=== PATIENT | female | born 1970 | race Caucasian/White ===

== ENCOUNTER 2017-08-21 10:32 | Emergency (ER) | payer OTHER ==
--- NOTE | 2017-08-21 12:28 | RAD ---
HISTORY: Calf pain COMPARISONS: None relevant TECHNIQUE: Multiple transverse and longitudinal ultrasound images were obtained of the right lower extremity from the level of the common femoral vein inferiorly through to the infrapopliteal veins using grayscale, color Doppler, and spectral Doppler imaging with and without compression and with augmentation. Comparison images were obtained of the contralateral common femoral vein. FINDINGS: VEINS: There is occlusive thrombus noted within one posterior tibial vein with nonocclusive thrombus noted in a peroneal vein. There is no extension into the popliteal or suprapopliteal venous system. The remainder of the venous system of the right lower extremity is compressible throughout its course, with normal flow on color Doppler imaging and normal response to augmentation on spectral Doppler imaging. SOFT TISSUES: Unremarkable. OTHER FINDINGS: None. IMPRESSION: CALF VEIN THROMBUS OF THE POPLITEAL OR SUPRAPOPLITEAL EXTENSION
[2017-08-21 12:35] VITALS: BP 107/78
--- NOTE | 2017-08-21 15:05 | UC ---
Keith Frias Angela, scribed for Fransisca Alvarado DO on 08/21/17 at 1221 . Lower Extremity/Ankle HPI - HPI Summary HPI Summary: This pt is a 47 y/o female presenting to [facility] c/o right calf pain x3 days. Pt reports a history of 2 DVTs (last one was 3 years ago). Pt notes that today's pain is similar to past DVTs. She states she feels unusually tired. Pt denies chest pain, SOB, palpitations, headache, rashes. She denies any recent bedrest, truama, long travel, hrt. Pt is a former smoker. - History of Current Complaint Chief Complaint: UCLowerExtremity Stated Complaint: PAIN AND BURNING IN CALF OF LEG Time Seen by Provider: 08/21/17 11:43 Hx Obtained From: Patient Hx Last Menstrual Period: hyster Onset/Duration: Lasting Days, Still Present Severity Currently: Severe Pain Intensity: 8 Pain Scale Used: 0-10 Numeric Able to Bear Weight: Yes - Allergies/Home Medications Allergies/Adverse Reactions: Allergies Allergy/AdvReac Type Severity Reaction Status Date / Time Penicillins Allergy Severe Rash Verified 08/21/17 10:44 Sulfa Antibiotics Allergy Intermediate Hives Verified 08/21/17 10:44 Sulfa Drugs Allergy Hives Verified 08/21/17 10:44 PMH/Surg Hx/FS Hx/Imm Hx - Additional Past Medical History Additional PMH: PMHx: DVT Endocrine History: Hypothyroidism Other Endocrine History: DENIES: diabetes Cardiovascular History: Deep Vein Thrombosis Respiratory History: Asthma - Surgical History Surgical History: Yes Surgery Procedure, Year, and Place: varicose vein [id number]. breast reduction x 25 yrs AGO. HYSTERECTOMY 03/2014-[place] - Family History Known Family History: Positive: Unknown - pt is adopted - Social History Alcohol Use: None Alcohol Amount: 6 DRINKS PER WEEK- PATIENT STATES IS IN THE PROCESS OF QUITTING Substance Use Type: None Smoking Status (MU): Former Smoker Amount Used/How Often: OFF AND ON SOCIALLY 20 YEARS When Did the Patient Quit Smoking/Using Tobacco: 10 YEARS AGO - Immunization History Most Recent Influenza Vaccination: 2013 Most Recent Tetanus Shot: Unsure Most Recent Pneumonia Vaccination: Never Review of Systems Constitutional: Fatigue Skin: Negative Eyes: Negative ENT: Negative Respiratory: Negative Cardiovascular: Negative Gastrointestinal: Negative Genitourinary: Negative Motor: Negative Musculoskeletal: Other: - right calf pain Neurological: Negative Psychological: Negative All Other Systems Reviewed And Are Negative: Yes Physical Exam Triage Information Reviewed: Yes Appearance: Well-Appearing, No Pain Distress, Well-Nourished Vital Signs: Initial Vital Signs Temp 98 F 08/21/17 10:45 Pulse 78 08/21/17 10:45 Resp 18 08/21/17 10:45 BP 103/65 08/21/17 10:45 Pulse Ox 100 08/21/17 10:45 Vital Signs Reviewed: Yes Eyes: Positive: Conjunctiva Clear. Negative: Discharge ENT: Positive: Hearing grossly normal, Other: - normal voice. Negative: Muffled /hoarse voice Neck exam: Normal Neck: Positive: Supple Respiratory: Positive: Lungs clear, Normal breath sounds, No respiratory distress, No accessory muscle use Cardiovascular: Positive: RRR, No Murmur Musculoskeletal: Positive: Edema @ - right calf, Other: - rt calf tenderness Neurological: Positive: Alert, Muscle Tone Normal Psychological Exam: Normal Psychological: Positive: Age Appropriate Behavior Skin Exam: Normal Skin: Positive: Other - warm, dry, normal color. Diagnostics - Laboratory Diagnostic Studies Completed/Ordered: Venous Doppler Study (RIGHT), as read by the radiologist. IMPRESSION: calf vein thrombus of the popliteal or suprapopliteal extension. ED physician has reviewed this radiology report and agrees. Lower Extremity Course/Dx - Course Course Of Treatment: Medications reviewed this visit. Venous dopple study shows right calf vein thrombus of the popliteal or suprapopliteal extension. Pt will be transferred to [facility] via ambulance. - Differential Dx/Diagnosis Provider Diagnoses: dvt Discharge - Discharge Plan Condition: Stable Disposition: [facility] Referrals: Addie Guardado MD [Primary Care Provider] - The documentation as recorded by the Keith felipe Angela accurately reflects the service I personally performed and the decisions made by , Fransisca Alvarado DO.
== END 2017-08-21 13:05 | disposition short-term general hospital (02) ==
LOC: UCEAST 10:32
DX: I82.409 Acute embolism and thrombosis of unspecified deep veins of unspecified lower extremity (principal); Z88.0 Allergy status to penicillin; Z88.2 Allergy status to sulfonamides; Z87.891 Personal history of nicotine dependence
CPT/HCPCS: 99213; G0463

== ENCOUNTER 2017-08-21 13:33 | Emergency (ER) | payer OTHER ==
[2017-08-21 13:56] VITALS: BP 103/70
--- NOTE | 2017-08-21 16:45 | ED ---
Lower Extremity - HPI Summary HPI Summary: 47 y/o female presenting to ED from [facility] c/o right calf pain x2-3 days. Pt reports a history of 2 DVTs (last one was 3 years ago). Pt notes that today's pain is similar to past DVTs. She states she feels unusually tired. Pt denies chest pain, SOB, palpitations, headache, rashes. She denies any recent bedrest, long travel, hrt or trauma. Pt is a former smoker. Had an ultrasound completed at [facility] stating she has a DVT of right popliteal vein and is here for starting treatment. - History of Current Complaint Chief Complaint: EDGeneral Stated Complaint: POSSIBLE DVT Time Seen by Provider: 08/21/17 14:14 Hx Obtained From: Patient Hx Last Menstrual Period: hyster Mechanism Of Injury: Other - none Onset/Duration: Days Severity Initially: Mild Severity Currently: Moderate Pain Intensity: 8 Pain Scale Used: 0-10 Numeric Timing: Constant Location: Is Discrete @ - right posterior calf Character Of Pain: Sharp, Aching Associated Signs And Symptoms: Positive: Swelling, Other - warm to touch Aggravating Factor(s): Standing, Ambulation Alleviating Factor(s): Rest Able to Bear Weight: Yes - Allergies/Home Medications Allergies/Adverse Reactions: Allergies Allergy/AdvReac Type Severity Reaction Status Date / Time Penicillins Allergy Severe Rash Verified 08/21/17 10:44 Sulfa Antibiotics Allergy Intermediate Hives Verified 08/21/17 10:44 Sulfa Drugs Allergy Hives Verified 08/21/17 10:44 PMH/Surg Hx/FS Hx/Imm Hx Endocrine/Hematology History: Reports: Hx Thyroid Disease - HYPOTHYROID Denies: Hx Diabetes Cardiovascular History: Reports: Hx Peripheral Vascular Disease - HAD VARICOSE VEIN SURGERY DONE BOTH LEGS, Other Cardiovascular Problems/Disorders - DVT LEFT LEG X 2 - LAST 10/2013 Denies: Hx Hypertension Respiratory History: Reports: Hx Asthma - PRN INHALER- HAS NOT NEEDED TO IN A LONG TIME Denies: Hx Chronic Obstructive Pulmonary Disease (COPD) GI History: Reports: Other GI Disorders - pt has had diarrhea for year pcp aware Denies: Hx Crohn's Disease, Hx Diverticulosis, Hx Gall Bladder Disease, Hx Gastroesophageal Reflux Disease, Hx Gastrointestinal Bleed, Hx Hiatal Hernia, Hx Irritable Bowel, Hx Jaundice, Hx Obstructive Bowel, Hx Ileostomy, Hx Pyloric Stenosis, Hx Ulcer History: Denies: Hx Dialysis, Hx Kidney Infection, Hx Kidney Stones, Hx Renal Disease , Other Problems/Disorders Sensory History: Reports: Hx Contacts or Glasses - GLASSES Denies: Hx Hearing Aid Opthamlomology History: Reports: Hx Contacts or Glasses - GLASSES Neurological History: Reports: Other Neuro Impairments/Disorders - tardive dyskineshia Psychiatric History: Reports: Hx Anxiety - ON MEDICATION FOR, Hx Depression - ON MEDICATION FOR, Hx Bipolar Disorder - PT Denies: Hx of Violent Episodes Against Others - Surgical History Surgery Procedure, Year, and Place: varicose vein [id number]. breast reduction x 25 yrs AGO. HYSTERECTOMY 03/2014-[place] Hx Anesthesia Reactions: No - Immunization History Immunizations Up to Date: Yes Infectious Disease History: No Infectious Disease History: Denies: Hx Clostridium Difficile, Hx Hepatitis, Hx Human Immunodeficiency Virus (HIV), Hx of Known/Suspected MRSA, Hx Shingles, Hx Tuberculosis, Hx Known/ Suspected VRE, Hx Known/Suspected VRSA, History Other Infectious Disease, Traveled Outside the [place] in Last 30 Days - Family History Known Family History: Positive: Hypertension - Social History Alcohol Use: None Alcohol Amount: 6 DRINKS PER WEEK- PATIENT STATES IS IN THE PROCESS OF QUITTING Substance Use Type: Reports: None Smoking Status (MU): Former Smoker Amount Used/How Often: OFF AND ON SOCIALLY 20 YEARS Review of Systems Constitutional: Negative Cardiovascular: Negative Respiratory: Negative Positive: Arthralgia, Myalgia - right posterior calf Skin: Negative Positive: Paresthesia - right foot All Other Systems Reviewed And Are Negative: Yes Physical Exam Triage Information Reviewed: Yes Vital Signs On Initial Exam: Initial Vitals Temp Pulse Resp BP Pulse Ox 97.7 F 74 14 103/70 97 08/21/17 13:52 08/21/17 13:52 08/21/17 13:52 08/21/17 13:52 08/21/17 13:52 Vital Signs Reviewed: Yes Appearance: Positive: Well-Appearing, No Pain Distress, Well-Nourished Skin: Positive: Warm, Skin Color Reflects Adequate Perfusion, Dry. Negative: Cold, Cyanosis @, Pale, Erythema @ Head/Face: Positive: Normal Head/Face Inspection Eyes: Positive: EOMI, KURT, Conjunctiva Clear ENT: Positive: Hearing grossly normal Neck: Positive: Supple, Nontender Respiratory/Lung Sounds: Positive: Clear to Auscultation, Breath Sounds Present. Negative: Decreased Breath Sounds, Rales, Rhonchi, Wheezes Cardiovascular: Positive: Normal, RRR, Pulses are Symmetrical in both Upper and Lower Extremities - 2+ pedal b/l. Negative: Murmur, Rub, Tachycardia, Leg Edema Left, Leg Edema Right Abdomen Description: Positive: Nontender, Soft Bowel Sounds: Positive: Present Musculoskeletal: Positive: Normal, Pain @ - on palpation of mid posterior calf, Shameka Sign Right. Negative: Strength/ROM Intact, Limited @, Interruption @, Edema Left, Edema Right Neurological: Positive: Normal, Sensory/Motor Intact, Alert, Oriented to Person Place, Time, NV Bundle Intact Distally, Normal Gait - Manuel Coma Scale Coma Scale Total: 15 Diagnostics - Vital Signs Vital Signs Temp Pulse Resp BP Pulse Ox 08/21/17 13:52 97.7 F 74 14 103/70 97 - Laboratory Result Diagrams: 08/21/17 16:57 08/21/17 16:57 Lab Statement: Any lab studies that have been ordered have been reviewed, and results considered in the medical decision making process. - Ultrasound No standard instances Ultrasound Interpretation: Positive (See Comments) - CALF VEIN THROMBUS OF THE POPLITEAL OR SUPRAPOPLITEAL EXTENSION Ultrasound Interpretation Completed By: Radiologist Lower Extremity Course/Dx - Course Course Of Treatment: US already obtained at and report is attached. started on treatment while in ED. Spoke with Barbra at 4:45pm about patient and treatment options for DVT with history. educated on options of treatment and decided on xarelto. Properly instructed on how to take the medication. Patient understands and agrees. Labs obtained and were unremarkable. No concern for PE at this time as she has no symptoms and no history. Aware of worsening signs and symptoms to watch out for. Close follow up. Educated on xarelto and the risk of bleeding/side effecs/contraindications. - Diagnoses Differential Diagnosis/HQI/PQRI: Positive: DVT, Phlebitis, Strain Provider Diagnoses: Right leg DVT - Physician Notifications Discussed Care Of Patient With: Dr Belle Time Discussed With Above Provider: 16:45 Instructed by Provider To: Other - treat and follow up, stable condition send home Discharge - Discharge Plan Condition: Stable Disposition: HOME Prescriptions: Rivaroxaban [Xarelto Starter Pack 15 & 20 mg] 1 tab PO SEE INSTRUCTIONS #51 tab Patient Education Materials: Deep Venous Thrombosis (ED), Rivaroxaban (By mouth ) Referrals: Addie Guardado MD [Primary Care Provider] - [facility] [Outside] Additional Instructions: Take anticoagulant by mouth as directed, with next dose being tonight before bedtime. 15mg twice a day for 21 days and then 20mg once a day there after. Refrain from use of blood thinners such as ibuprofen(motrin) aleve(naproxen) and aspirin. Be sure you let medical clerical assistant know you are on anticoagulants. Make an appointment for follow up with PCP to have re-checked and additional medication. You are at higher risk of bleeding while taking this medication. Any new or worsening symptoms such as SOB, chest pain please seek medical attention immediately.
[2017-08-21 17:08] LABS: Hematocrit 41 % (35-47); Hemoglobin 13.7 g/dl (12.0-16.0); Mean Corpuscular HGB Conc 33 g/dl (31-36); Mean Corpuscular Hemoglobin 29 pg (27-31); Mean Corpuscular Volume 87 fL (80-97); Mean Platelet Volume 8 um3 (7.4-10.4); Red Blood Count 4.75 10^6/ul (4.0-5.4); Red Cell Distribution Width 13 % (10.5-15); White Blood Count 5.8 10^3/ul (3.5-10.8)
[2017-08-21 17:22] LABS: Albumin 4.4 g/dL (3.2-5.2); BUN/Creatinine Ratio 10.9 (8-20); Calcium 9.9 mg/dL (8.6-10.3); EGFR African American 127.4 (>60); Globulin 3.1 g/dL (2-4); Potassium 4.1 mmol/L (3.5-5.0); Total Bilirubin 0.5 mg/dL (0.2-1.0); Total Protein 7.5 g/dL (6.4-8.9)
[2017-08-21] MEDS ORDERED: Rivaroxaban TAB(*) 15 MG PO ONE (17:40)
== END 2017-08-21 17:53 | disposition home or self-care (01) ==
LOC: ED 13:33
DX: I82.401 Acute embolism and thrombosis of unspecified deep veins of right lower extremity (principal)
CPT/HCPCS: 36415; 80053; 85025; 99282

== ENCOUNTER 2017-12-26 02:59 | Emergency (ER) | payer OTHER ==
[2017-12-26] MEDS ORDERED: NS 0.9% 1000 ML* 1,000 ML IV ONE (04:12)
[2017-12-26] MEDS ORDERED: LORazepam INJ* 2 MG/ML 1 ML VIAL IV PUSH ONE (04:12)
[2017-12-26] MEDS ORDERED: Ondansetron INJ* 2 MG/ML VIAL IV ONE (04:13)
[2017-12-26] MEDS ORDERED: Pantoprazole IV* 40 MG IV ONE (04:13)
[2017-12-26 04:45] LABS: ABS Basophils 0 10^3/ul (0-0.2); ABS Eosinophils 0 10^3/ul (0-0.6); ABS Lymphocytes 1.2 10^3/ul (1.0-4.8); ABS Monocytes 0.3 10^3/ul (0-0.8); ABS Neutrophils 7.4 10^3/ul (1.5-7.7); ABS Nucleated RBC 0 10^3/ul; Eosinophil % 0 % (0-6); Hematocrit 37 % (35-47); Hemoglobin 12.1 g/dl (12.0-16.0); Lymphocyte % 13.5 % (25-47); Mean Corpuscular HGB Conc 33 g/dl (31-36); Mean Corpuscular Hemoglobin 28 pg (27-31); Mean Corpuscular Volume 84 fL (80-97); Mean Platelet Volume 8 um3 (7.4-10.4); Nucleated Red Blood Cells % 0; Platelet Count 277 10^3/ul (150-450); Red Blood Count 4.39 10^6/ul (4.0-5.4); Red Cell Distribution Width 13 % (10.5-15)
[2017-12-26 04:46] LABS: Urine Appearance Clear; Urine Blood Negative (Negative); Urine Color Straw; Urine Ketones Negative (Negative); Urine Protein Negative (Negative); Urine Specific Gravity 1.003 (1.010-1.030); Urine Urobilinogen Negative (Negative)
[2017-12-26 04:55] LABS: EGFR Non-African American 95.6 (>60)
--- NOTE | 2017-12-26 05:49 | ED ---
Arsalan Frias Rebecca, scribed for Veronica Carrero MD on 12/26/17 at 0325 . Substance Abuse/Use - HPI Summary HPI Summary: Pt is a 47 y/o F who presents to ED s/p accidental Seroquel OD. Pt reports that at 2100 she took 200 mg Seroquel which is her normal dose, then at 2300 she took another 2 pills (400 mg), with 600 mg total. Pt reports that she believes she got confused about the medication and took the Seroquel instead of another medication. Currently, pt c/o "the shakes," dizziness, dry mouth and nausea. Sx aggravated and alleviated by nothing. Does not take any Seroquel in the morning. - History Of Current Complaint Chief Complaint: EDOverdose Stated Complaint: OVERDOSE Time Seen by Provider: 12/26/17 03:01 Hx Obtained From: Patient Hx Last Menstrual Period: hyster Ingestion History: Type/Name Of Drug - Seroquel, Amount Ingested - 600 mg Overdose Characteristics: Oral Aggravating Factor(s): Nothing Alleviating Factor(s): Nothing Associated Signs And Symptoms: Nausea, Other: - Dizziness - Allergies/Home Medications Allergies/Adverse Reactions: Allergies Allergy/AdvReac Type Severity Reaction Status Date / Time MS Penicillins [Penicillins] Allergy Severe Rash Verified 08/21/17 10:44 MS Sulfa Antibiotics Allergy Intermediate Hives Verified 08/21/17 10:44 [Sulfa Antibiotics] MS Sulfa Drugs [Sulfa Drugs] Allergy Hives Verified 08/21/17 10:44 PMH/Surg Hx/FS Hx/Imm Hx Endocrine/Hematology History: Reports: Hx Thyroid Disease - HYPOTHYROID Denies: Hx Diabetes Cardiovascular History: Reports: Hx Peripheral Vascular Disease - HAD VARICOSE VEIN SURGERY DONE BOTH LEGS, Other Cardiovascular Problems/Disorders - DVT LEFT LEG X 2 - LAST 10/2013 Denies: Hx Hypertension Respiratory History: Reports: Hx Asthma - PRN INHALER- HAS NOT NEEDED TO IN A LONG TIME Denies: Hx Chronic Obstructive Pulmonary Disease (COPD) GI History: Reports: Other GI Disorders - pt has had diarrhea for year pcp aware Denies: Hx Crohn's Disease, Hx Diverticulosis, Hx Gall Bladder Disease, Hx Gastroesophageal Reflux Disease, Hx Gastrointestinal Bleed, Hx Hiatal Hernia, Hx Irritable Bowel, Hx Jaundice, Hx Obstructive Bowel, Hx Ileostomy, Hx Pyloric Stenosis, Hx Ulcer History: Denies: Hx Dialysis, Hx Kidney Infection, Hx Kidney Stones, Hx Renal Disease , Other Problems/Disorders Sensory History: Reports: Hx Contacts or Glasses - GLASSES Denies: Hx Hearing Aid Opthamlomology History: Reports: Hx Contacts or Glasses - GLASSES Neurological History: Reports: Other Neuro Impairments/Disorders - tardive dyskineshia Psychiatric History: Reports: Hx Anxiety - ON MEDICATION FOR, Hx Depression - ON MEDICATION FOR, Hx Bipolar Disorder - PT Denies: Hx of Violent Episodes Against Others - Surgical History Surgery Procedure, Year, and Place: varicose vein [id number]. breast reduction x 25 yrs AGO. HYSTERECTOMY 03/2014-[facility] [facility] Hx Anesthesia Reactions: No Infectious Disease History: No Infectious Disease History: Denies: Hx Clostridium Difficile, Hx Hepatitis, Hx Human Immunodeficiency Virus (HIV), Hx of Known/Suspected MRSA, Hx Shingles, Hx Tuberculosis, Hx Known/ Suspected VRE, Hx Known/Suspected VRSA, History Other Infectious Disease, Traveled Outside the [place] in Last 30 Days - Family History Known Family History: Positive: Hypertension - Social History Alcohol Use: None Alcohol Amount: 6 DRINKS PER WEEK- PATIENT STATES IS IN THE PROCESS OF QUITTING Substance Use Type: Reports: None Smoking Status (MU): Former Smoker Amount Used/How Often: OFF AND ON SOCIALLY 20 YEARS Review of Systems Positive: Other - "the shakes" Positive: Other - Dry mouth Positive: Nausea Neurological: Other - Dizziness All Other Systems Reviewed And Are Negative: Yes Physical Exam - Summary Physical Exam Summary: VITAL SIGNS: Reviewed. GENERAL: ~Patient is a well-developed and nourished female who is lying comfortable in the stretcher. Patient is not in any acute respiratory distress. HEAD AND FACE: No signs of trauma. No ecchymosis, hematomas or skull depressions. No sinus tenderness. EYES: PERRLA, EOMI x 2, No injected conjunctiva, no nystagmus. EARS: Hearing grossly intact. Ear canals and tympanic membranes are within normal limits. MOUTH: Oropharynx within normal limits. NECK: Supple, trachea is midline, no adenopathy, no JVD, no carotid bruit, no c- spine tenderness, neck with full ROM. CHEST: Symmetric, no tenderness at palpation LUNGS: Clear to auscultation bilaterally. No wheezing or crackles. CVS: Regular rate and rhythm, S1 and S2 present, no murmurs or gallops appreciated. ABDOMEN: Soft, non-tender. No signs of distention. No rebound no guarding, and no masses palpated. Bowel sounds are normal. EXTREMITIES: FROM in all major joints, no edema, no cyanosis or clubbing. NEURO: Alert and oriented x 3. No acute neurological deficits. Speech is normal and follows commands. SKIN: Dry and warm Psych: Anxious Triage Information Reviewed: Yes Vital Signs On Initial Exam: Initial Vitals Temp Pulse Resp BP Pulse Ox 98.4 F 91 16 112/75 100 12/26/17 03:21 12/26/17 03:21 12/26/17 03:21 12/26/17 03:21 12/26/17 03:21 Vital Signs Reviewed: Yes Diagnostics - Vital Signs Vital Signs Temp Pulse Resp BP Pulse Ox 12/26/17 03:21 98.4 F 91 16 112/75 100 - Laboratory Result Diagrams: 12/26/17 04:26 12/26/17 04:26 Lab Statement: Any lab studies that have been ordered have been reviewed, and results considered in the medical decision making process. - EKG 0426 Cardiac Rate: NL - 84 bpm EKG Rhythm: Sinus Rhythm EKG Interpretation: Non-specific T wave changesin the inferior leads Course/Dx - Course Assessment/Plan: Pt is a 47 y/o F who presents to ED s/p accidental Seroquel OD. Pt reports that at 2100 she took 200 mg Seroquel which is her normal dose, then at 2300 she took another 2 pills (400 mg), with 600 mg total. Pt reports that she believes she got confused about the medication and took the Seroquel instead of another medication. Currently, pt c/o "the shakes," dizziness, dry mouth and nausea. Does not take any Seroquel in the morning. UA and bloodwork were done. In the ED course pt received Zofran, Protonix, Ativan and fluids. Pt feels better and she will be D/C to home with Dx of accidental overdose with a followup with her PCP. She understands and agrees. Allergies noted. - Diagnoses Provider Diagnoses: Accidental overdose Discharge - Discharge Plan Condition: Stable Disposition: HOME Patient Education Materials: Adult Overdose (ED) Referrals: Addie Guardado MD [Primary Care Provider] - 3 Days Additional Instructions: RETURN TO EMERGENCY DEPARTMENT FOR ANY RETURNING OR WORSENING SYMPTOMS. The documentation as recorded by the Arsalan felipe Rebecca accurately reflects the service I personally performed and the decisions made by , Veronica Carrero MD.
[2017-12-26 06:22] VITALS: BP 117/68
== END 2017-12-26 06:26 | disposition home or self-care (01) ==
LOC: ED 02:59
DX: T43.591A Poisoning by other antipsychotics and neuroleptics, accidental (unintentional), initial encounter (principal); R42 Dizziness and giddiness; R68.2 Dry mouth, unspecified; R11.0 Nausea; Z87.891 Personal history of nicotine dependence; Z88.0 Allergy status to penicillin; Z88.2 Allergy status to sulfonamides
CPT/HCPCS: 36415; 80053; 81003; 85025; 93005; 96360; 96361; 96374; 96375; 99283; J2060; J2405

== ENCOUNTER 2018-01-05 00:09 | Emergency (ER) | payer OTHER ==
[2018-01-05] MEDS ORDERED: LORazepam INJ* 2 MG/ML 1 ML VIAL IV PUSH ONE (00:44)
[2018-01-05] MEDS ORDERED: NS 0.9% 1000 ML* 1,000 ML IV ONE (00:44)
[2018-01-05] MEDS ORDERED: Meclizine TAB* 12.5 MG PO ONE (00:44)
[2018-01-05 01:30] LABS: ABS Basophils 0 10^3/ul (0-0.2); ABS Eosinophils 0 10^3/ul (0-0.6); ABS Lymphocytes 1.6 10^3/ul (1.0-4.8); ABS Monocytes 0.3 10^3/ul (0-0.8); ABS Neutrophils 7.1 10^3/ul (1.5-7.7); ABS Nucleated RBC 0 10^3/ul; Eosinophil % 0 % (0-6); Hematocrit 38 % (35-47); Hemoglobin 12.8 g/dl (12.0-16.0); Mean Corpuscular HGB Conc 34 g/dl (31-36); Mean Corpuscular Hemoglobin 28 pg (27-31); Mean Corpuscular Volume 83 fL (80-97); Mean Platelet Volume 8 um3 (7.4-10.4); Nucleated Red Blood Cells % 0; Platelet Count 299 10^3/ul (150-450); Red Blood Count 4.57 10^6/ul (4.0-5.4); Red Cell Distribution Width 13 % (10.5-15); White Blood Count 9.1 10^3/ul (3.5-10.8)
[2018-01-05] MEDS ORDERED: Potassium Chlor TAB* 20 MEQ TAB.ER PO ONE (02:04)
[2018-01-05 03:56] VITALS: BP 120/68
--- NOTE | 2018-01-05 07:20 | ED ---
Gabe Frias Nilda, scribed for Veronica Carrero MD on 01/05/18 at 0033 . Dizziness - HPI Summary HPI Summary: This patient is a 47 year old F presenting to [facility] with a chief complaint of constant vertigo since lying down for bed approximately 2 hours ago. The patient rates the pain 0/10 in severity. Symptoms aggravated by movement and alleviated by rest. Patient reports nausea and vomiting, dizziness, blurry vision, and sensation of lump in my throat. PMHx vertigo (2-3 times per month) , Bipolar 2, and anxiety (Tx with Ativan). Pt states she has run out of Ativan. - History Of Current Complaint Chief Complaint: EDDizziness Stated Complaint: ANXIETY, VERTIGO Hx Obtained From: Patient Onset/Duration: Still Present, Suddenly Timing: Constant Character: Dizzy Aggravating Factor(s): Other - movement Alleviating Factor(s): Rest Associated Signs And Symptoms: Positive: Other: - nausea and vomiting, dizziness , blurry vision, and sensation of lump in my throat." - Allergies/Home Medications Allergies/Adverse Reactions: Allergies Allergy/AdvReac Type Severity Reaction Status Date / Time Penicillins Allergy Hives Verified 01/05/18 00:21 Sulfa (Sulfonamide Allergy Hives Verified 01/05/18 00:21 Antibiotics) PMH/Surg Hx/FS Hx/Imm Hx Endocrine/Hematology History: Reports: Hx Thyroid Disease - HYPOTHYROID Denies: Hx Diabetes Cardiovascular History: Reports: Hx Peripheral Vascular Disease - HAD VARICOSE VEIN SURGERY DONE BOTH LEGS, Other Cardiovascular Problems/Disorders - DVT LEFT LEG X 2 - LAST 10/2013 Denies: Hx Hypertension Respiratory History: Reports: Hx Asthma - PRN INHALER- HAS NOT NEEDED TO IN A LONG TIME Denies: Hx Chronic Obstructive Pulmonary Disease (COPD) GI History: Reports: Other GI Disorders - pt has had diarrhea for year pcp aware Denies: Hx Crohn's Disease, Hx Diverticulosis, Hx Gall Bladder Disease, Hx Gastroesophageal Reflux Disease, Hx Gastrointestinal Bleed, Hx Hiatal Hernia, Hx Irritable Bowel, Hx Jaundice, Hx Obstructive Bowel, Hx Ileostomy, Hx Pyloric Stenosis, Hx Ulcer History: Denies: Hx Dialysis, Hx Kidney Infection, Hx Kidney Stones, Hx Renal Disease , Other Problems/Disorders Sensory History: Reports: Hx Contacts or Glasses - GLASSES Denies: Hx Hearing Aid Opthamlomology History: Reports: Hx Contacts or Glasses - GLASSES Neurological History: Reports: Other Neuro Impairments/Disorders - tardive dyskineshia, vertigo Psychiatric History: Reports: Hx Anxiety - ON MEDICATION FOR, Hx Depression - ON MEDICATION FOR, Hx Bipolar Disorder - PT Denies: Hx of Violent Episodes Against Others - Surgical History Surgery Procedure, Year, and Place: varicose vein [id number]. breast reduction x 25 yrs AGO. HYSTERECTOMY 03/2014-[place] Hx Anesthesia Reactions: No - Immunization History Date of Tetanus Vaccine: unk Date of Influenza Vaccine: none Infectious Disease History: No Infectious Disease History: Denies: Hx Clostridium Difficile, Hx Hepatitis, Hx Human Immunodeficiency Virus (HIV), Hx of Known/Suspected MRSA, Hx Shingles, Hx Tuberculosis, Hx Known/ Suspected VRE, Hx Known/Suspected VRSA, History Other Infectious Disease, Traveled Outside the [place] in Last 30 Days - Family History Known Family History: Positive: Hypertension - Social History Alcohol Use: None Alcohol Amount: 6 DRINKS PER WEEK- PATIENT STATES IS IN THE PROCESS OF QUITTING Substance Use Type: Reports: None Smoking Status (MU): Current Some Day Smoker Amount Used/How Often: OFF AND ON SOCIALLY 20 YEARS Review of Systems Positive: Blurred Vision Positive: Other - "lump in my throat" Positive: Vomiting, Nausea Positive: Other - negative pain Neurological: Other - dizziness, vertigo Positive: Anxious All Other Systems Reviewed And Are Negative: Yes Physical Exam - Summary Physical Exam Summary: VITAL SIGNS: Reviewed. GENERAL: Patient is a well-developed and nourished female who is lying comfortable in the stretcher. Patient is not in any acute respiratory distress. HEAD AND FACE: No signs of trauma. No ecchymosis, hematomas or skull depressions. No sinus tenderness. EYES: PERRLA, EOMI x 2, No injected conjunctiva, no nystagmus. EARS: Hearing grossly intact. Ear canals and tympanic membranes are within normal limits. MOUTH: Oropharynx within normal limits. NECK: Supple, trachea is midline, no adenopathy, no JVD, no carotid bruit, no c- spine tenderness, neck with full ROM. CHEST: Symmetric, no tenderness at palpation LUNGS: Clear to auscultation bilaterally. No wheezing or crackles. CVS: Regular rate and rhythm, S1 and S2 present, no murmurs or gallops appreciated. ABDOMEN: Soft, non-tender. No signs of distention. No rebound no guarding, and no masses palpated. Bowel sounds are normal. EXTREMITIES: FROM in all major joints, no edema, no cyanosis or clubbing. NEURO: Alert and oriented x 3. No acute neurological deficits. Speech is normal and follows commands. SKIN: Dry and warm Triage Information Reviewed: Yes Vital Signs On Initial Exam: Initial Vitals Temp Pulse Resp BP Pulse Ox 99.2 F 85 16 117/74 95 01/05/18 00:17 01/05/18 00:17 01/05/18 00:17 01/05/18 00:17 01/05/18 00:17 Vital Signs Reviewed: Yes Diagnostics - Vital Signs Vital Signs Temp Pulse Resp BP Pulse Ox 01/05/18 00:17 99.2 F 85 16 117/74 95 - Laboratory Result Diagrams: 01/05/18 01:05 01/05/18 01:05 Lab Statement: Any lab studies that have been ordered have been reviewed, and results considered in the medical decision making process. Dizzy Course/Dx - Course Assessment/Plan: Pt is 47 y/o with Hx vertigo, bipolar, and anxiety. Pt came here c/o dizziness worse with movement. Exam unremarkable. Pt will be D/C. - Diagnoses Provider Diagnoses: Benign positional vertigo, Anxiety Discharge - Discharge Plan Condition: Stable Disposition: HOME Prescriptions: Meclizine TAB* [Antivert 12.5 TAB*] 25 mg PO TID PRN #30 tab PRN Reason: Dizziness Patient Education Materials: Benign Paroxysmal Positional Vertigo (ED), Anxiety (ED) Referrals: Addie Guardado MD [Primary Care Provider] - 2 Days Additional Instructions: Take medications as directed. Follow up with your primary care physician. RETURN TO THE EMERGENCY DEPARTMENT FOR CHANGING OR WORSENING SYMPTOMS. The documentation as recorded by the Gabe felipe Nilda accurately reflects the service I personally performed and the decisions made by , Veronica Carrero MD.
== END 2018-01-05 03:54 | disposition home or self-care (01) ==
LOC: ED 00:09
DX: R11.2 Nausea with vomiting, unspecified (principal); R42 Dizziness and giddiness; H53.8 Other visual disturbances; H81.10 Benign paroxysmal vertigo, unspecified ear; F41.9 Anxiety disorder, unspecified; Z72.0 Tobacco use
CPT/HCPCS: 36415; 80053; 80178; 85025; 96374; 99283; A9270-GY; J2060

== ENCOUNTER 2018-01-22 21:55 | Emergency (ER) | payer OTHER ==
[2018-01-23 00:32] VITALS: BP 110/72
[2018-01-23] MEDS ORDERED: hydrOXYzine HCL TAB* 25 MG PO ONE (01:16)
--- NOTE | 2018-01-23 01:18 | ED ---
Complex/Multi-Sys Presentation - HPI Summary HPI Summary: 39-year-old female presents ED with complaints of having frequent panic attacks for the past month. States she is on Ativan for this, she just had this increased a few days ago to 1.5 mg daily. Patient states she began having a panic attack took her Ativan and symptoms shortly resolved after however she is still feeling shaky. Also admits to vertigo at times of panic attacks however she is not feeling this currently. Was given meclizine at previous visit at 80 week ago. This helps her with her vertigo. Denies any other symptoms other than feeling shaky. States she is anxious has trouble sleeping. Does have a psychiatrist that she follows up with and is supposed to see tomorrow. Denies any palpitations nausea vomiting headache or other symptoms at this time. Unknown cause of why she has panic attacks other than daily stress. No other significant past medical history. No recent trauma, injury or pain. - History Of Current Complaint Chief Complaint: EDPsychosocial Time Seen by Provider: 01/23/18 00:19 Hx Obtained From: Patient Onset/Duration: Sudden Onset, Lasting Hours, Still Present, Resolved - Mostly Timing: Constant Severity Currently: Mild Severity Initially: Moderate Location: Negative Aggravating Factor(s): None Alleviating Factor(s): Ativan Associated Signs And Symptoms: Positive: Dizziness - Resolved, Palpitations - Resolved, Nausea - Resolved, Other - Shakiness, hyperventilating resolved - Allergies/Home Medications Allergies/Adverse Reactions: Allergies Allergy/AdvReac Type Severity Reaction Status Date / Time Penicillins Allergy Hives Verified 01/05/18 00:21 Sulfa (Sulfonamide Allergy Hives Verified 01/05/18 00:21 Antibiotics) PMH/Surg Hx/FS Hx/Imm Hx Endocrine/Hematology History: Reports: Hx Thyroid Disease - HYPOTHYROID Denies: Hx Diabetes Cardiovascular History: Reports: Hx Peripheral Vascular Disease - HAD VARICOSE VEIN SURGERY DONE BOTH LEGS, Other Cardiovascular Problems/Disorders - DVT LEFT LEG X 2 - LAST 10/2013 Denies: Hx Hypertension Respiratory History: Reports: Hx Asthma - PRN INHALER- HAS NOT NEEDED TO IN A LONG TIME Denies: Hx Chronic Obstructive Pulmonary Disease (COPD) GI History: Reports: Other GI Disorders - pt has had diarrhea for year pcp aware Denies: Hx Crohn's Disease, Hx Diverticulosis, Hx Gall Bladder Disease, Hx Gastroesophageal Reflux Disease, Hx Gastrointestinal Bleed, Hx Hiatal Hernia, Hx Irritable Bowel, Hx Jaundice, Hx Obstructive Bowel, Hx Ileostomy, Hx Pyloric Stenosis, Hx Ulcer History: Denies: Hx Dialysis, Hx Kidney Infection, Hx Kidney Stones, Hx Renal Disease , Other Problems/Disorders Sensory History: Reports: Hx Contacts or Glasses - GLASSES Denies: Hx Hearing Aid Opthamlomology History: Reports: Hx Contacts or Glasses - GLASSES Neurological History: Reports: Other Neuro Impairments/Disorders - tardive dyskineshia, vertigo Psychiatric History: Reports: Hx Anxiety - ON MEDICATION FOR, Hx Depression - ON MEDICATION FOR, Hx Bipolar Disorder - PT Denies: Hx of Violent Episodes Against Others - Surgical History Surgery Procedure, Year, and Place: varicose vein [id number]. breast reduction x 25 yrs AGO. HYSTERECTOMY 03/2014-[place] Hx Anesthesia Reactions: No - Immunization History Date of Tetanus Vaccine: unk Date of Influenza Vaccine: none Immunizations Up to Date: Yes Infectious Disease History: No Infectious Disease History: Denies: Hx Clostridium Difficile, Hx Hepatitis, Hx Human Immunodeficiency Virus (HIV), Hx of Known/Suspected MRSA, Hx Shingles, Hx Tuberculosis, Hx Known/ Suspected VRE, Hx Known/Suspected VRSA, History Other Infectious Disease, Traveled Outside the [place] in Last 30 Days - Family History Known Family History: Positive: Hypertension - Social History Alcohol Use: None Alcohol Amount: 6 DRINKS PER WEEK- PATIENT STATES IS IN THE PROCESS OF QUITTING Substance Use Type: Reports: None Smoking Status (MU): Current Some Day Smoker Amount Used/How Often: OFF AND ON SOCIALLY 20 YEARS Review of Systems Constitutional: Negative Positive: Palpitations - resolved Respiratory: Negative Musculoskeletal: Negative Skin: Negative Neurological: Other - shaky Positive: Anxious All Other Systems Reviewed And Are Negative: Yes Physical Exam Triage Information Reviewed: Yes Vital Signs On Initial Exam: Initial Vitals Temp Pulse Resp BP Pulse Ox 99.3 F 94 18 136/72 96 01/22/18 22:02 01/22/18 22:02 01/22/18 22:02 01/22/18 22:02 01/22/18 22:02 Vital Signs Reviewed: Yes Appearance: Positive: Well-Appearing - Resting comfortably in stretcher eating, watching TV, getting up to go to the bathroom multiple times, No Pain Distress, Well-Nourished Skin: Positive: Warm, Skin Color Reflects Adequate Perfusion, Dry. Negative: Cold, Numb, Cyanosis @, Pale, Erythema @ Head/Face: Positive: Normal Head/Face Inspection Eyes: Positive: Normal, EOMI, KURT, Conjunctiva Clear ENT: Positive: Hearing grossly normal, Pharynx normal, TMs normal, Uvula midline Neck: Positive: Supple, Nontender Respiratory/Lung Sounds: Positive: Clear to Auscultation, Breath Sounds Present. Negative: Rales, Rhonchi, Wheezes Cardiovascular: Positive: Normal, RRR, Pulses are Symmetrical in both Upper and Lower Extremities. Negative: Murmur, Rub Abdomen Description: Positive: Nontender, Soft Bowel Sounds: Positive: Present Musculoskeletal: Positive: Normal, Strength/ROM Intact Neurological: Positive: Normal, Sensory/Motor Intact, Alert, Oriented to Person Place, Time Psychiatric: Positive: Normal, Affect/Mood Appropriate - Greig Coma Scale Best Eye Response: 4 - Spontaneous Best Motor Response: 6 - Obeys Commands Best Verbal Response: 5 - Oriented Coma Scale Total: 15 Diagnostics - Vital Signs Vital Signs Temp Pulse Resp BP Pulse Ox 01/23/18 01:01 98.8 F 79 16 110/72 99 01/23/18 01:00 77 95 01/23/18 00:01 79 110/72 96 01/23/18 00:00 79 97 01/22/18 23:30 80 110/72 96 01/22/18 23:00 81 105/66 97 01/22/18 22:34 84 98 01/22/18 22:30 84 109/73 96 01/22/18 22:20 85 96 01/22/18 22:18 120/76 01/22/18 22:02 99.3 F 94 18 136/72 96 - Laboratory Lab Statement: Any lab studies that have been ordered have been reviewed, and results considered in the medical decision making process. Complex Multi-Symp Course/Dx Course Of Treatment: Normal vital signs and physical exam. Appears that panic attack symptoms resolved. Is still feeling shaky. Given hydroxyzine before discharge. Encouraged to follow up with psychiatrist tomorrow as scheduled. Ativan dose was already increased recently therefore no need to change at this time. Encouraged to give more time to let medication due to its job. Also encouraged to discuss with psychiatrist about changing medications. Also encouraged counseling to develop coping mechanisms. No other concerns for other etiology at this time. Patient asymptomatic. Follow-up with PCP. Aware worsening signs and symptoms to watch out for. - Diagnoses Differential Diagnoses/HQI/PQRI: Other - Anxiety, panic attack, depression, palpitations Provider Diagnoses: Anxiety, Panic attack Discharge - Sign-Out/Discharge Documenting (check all that apply): Discharge - Discharge Plan Condition: Good Disposition: HOME Patient Education Materials: Anxiety (ED), Panic Attack (ED) Referrals: Addie Guardado MD [Primary Care Provider] - Additional Instructions: Continue taking our any prescribed medication for vertigo and anxiety. Recommend counseling to figure out coping mechanisms. Follow-up psychiatrist tomorrow to discuss medications and visit here. Any new or worsening symptoms please seek medical attention. - Billing Disposition and Condition Condition: GOOD Disposition: HOME
== END 2018-01-23 01:30 | disposition home or self-care (01) ==
LOC: ED 21:55
DX: F41.8 Other specified anxiety disorders (principal); R42 Dizziness and giddiness; Z72.0 Tobacco use
CPT/HCPCS: 99282

== ENCOUNTER 2018-05-22 12:51 | Emergency (ER) | payer OTHER ==
--- NOTE | 2018-05-22 13:00 | ED ---
HPI Chest Pain - HPI Summary HPI Summary: 48 y/o female BIBA c/o constnat chest pain described as a pressure for 2 weeks. CP in the mid-sternal area. Pt still has these symptoms now. Associated sx: SOB. Pt on Xarelto. Pt sent by [facility]. PMHx DVT, hysterectomy, hiatal hernia. Smoker. This is scribe Ed Flaca documenting for attending Joshua Hartley MD - History of Current Complaint Time Seen by Provider: 05/22/18 12:56 Hx Obtained From: Patient Hx Last Menstrual Period: hyster Onset/Duration: Started Weeks Ago, Still Present Timing: Constant Chest Pain Location: Discrete at: Character: Pressure/Squeezing Aggravating Factor(s): Nothing Alleviating Factor(s): Nothing Associated Signs and Symptoms: Positive: Shortness of Breath - Additional Pertinent History Primary Care Physician: SHERYL - Allergy/Home Medications Allergies/Adverse Reactions: Allergies Allergy/AdvReac Type Severity Reaction Status Date / Time Penicillins Allergy Hives Verified 05/22/18 13:06 Sulfa (Sulfonamide Allergy Hives Verified 05/22/18 13:06 Antibiotics) Home Medications: Home Medications Calcium Carb,Gluc/Mag Ox,Gluc [Calcium Magnesium Caplet] 1 each PO DAILY [History Confirmed 05/22/18] CloZAPine TAB* 100 mg PO DAILY 05/22/18 [History Confirmed 05/22/18] LORazepam TAB(*) [Ativan 0.5 MG TAB (*)] 0.5 mg PO DAILY 05/22/18 [History Confirmed 05/22/18] [place] Carbonate ER TAB* 300 mg PO DAILY 05/22/18 [History Confirmed 05/22/18] Potassium Gluconate [Potassium] 1 tab PO DAILY 05/22/18 [History Confirmed 05/22] Rivaroxaban TAB(*) [Xarelto 20 mg] 20 mg PO DAILY 05/22/18 [History Confirmed ] Sertraline* [Zoloft*] 100 mg PO DAILY 05/22/18 [History Confirmed 05/22/18] PMH/Surg Hx/FS Hx/Imm Hx Previously Healthy: No Endocrine/Hematology History: Reports: Hx Thyroid Disease - HYPOTHYROID Denies: Hx Diabetes Cardiovascular History: Reports: Hx Peripheral Vascular Disease - HAD VARICOSE VEIN SURGERY DONE BOTH LEGS, Other Cardiovascular Problems/Disorders - DVT LEFT LEG X 2 - LAST 10/2013 Denies: Hx Hypertension Respiratory History: Reports: Hx Asthma - PRN INHALER- HAS NOT NEEDED TO IN A LONG TIME Denies: Hx Chronic Obstructive Pulmonary Disease (COPD) GI History: Reports: Other GI Disorders - pt has had diarrhea for year pcp aware Denies: Hx Crohn's Disease, Hx Diverticulosis, Hx Gall Bladder Disease, Hx Gastroesophageal Reflux Disease, Hx Gastrointestinal Bleed, Hx Hiatal Hernia, Hx Irritable Bowel, Hx Jaundice, Hx Obstructive Bowel, Hx Ileostomy, Hx Pyloric Stenosis, Hx Ulcer History: Denies: Hx Dialysis, Hx Kidney Infection, Hx Kidney Stones, Hx Renal Disease , Other Problems/Disorders Sensory History: Reports: Hx Contacts or Glasses - GLASSES Denies: Hx Hearing Aid Opthamlomology History: Reports: Hx Contacts or Glasses - GLASSES Neurological History: Reports: Other Neuro Impairments/Disorders - tardive dyskineshia, vertigo Psychiatric History: Reports: Hx Anxiety - ON MEDICATION FOR, Hx Depression - ON MEDICATION FOR, Hx Bipolar Disorder - PT Denies: Hx of Violent Episodes Against Others - Surgical History Surgery Procedure, Year, and Place: varicose vein [id number]. breast reduction x 25 yrs AGO. HYSTERECTOMY 03/2014-[facility] Hx Anesthesia Reactions: No - Immunization History Date of Tetanus Vaccine: unk Date of Influenza Vaccine: none Infectious Disease History: Denies: Hx Clostridium Difficile, Hx Hepatitis, Hx Human Immunodeficiency Virus (HIV), Hx of Known/Suspected MRSA, Hx Shingles, Hx Tuberculosis, Hx Known/ Suspected VRE, Hx Known/Suspected VRSA, History Other Infectious Disease - Family History Known Family History: Positive: Hypertension - Social History Alcohol Use: None Alcohol Amount: 6 DRINKS PER WEEK- PATIENT STATES IS IN THE PROCESS OF QUITTING Substance Use Type: Reports: None Hx Tobacco Use: Yes Smoking Status (MU): Current Some Day Smoker Amount Used/How Often: OFF AND ON SOCIALLY 20 YEARS Review of Systems Constitutional: Negative Eyes: Negative ENT: Negative Positive: Chest Pain Positive: Shortness Of Breath Gastrointestinal: Negative Genitourinary: Negative Musculoskeletal: Negative Skin: Negative Neurological: Negative Psychological: Normal All Other Systems Reviewed And Are Negative: Yes Physical Exam - Summary Physical Exam Summary: VITAL SIGNS: Reviewed. GENERAL: Patient is a well-developed and nourished female who is lying comfortable in the stretcher. Patient is not in any acute respiratory distress. HEAD AND FACE: No signs of trauma. No ecchymosis, hematomas or skull depressions. No sinus tenderness. EYES: PERRLA, EOMI x 2, No injected conjunctiva, no nystagmus. EARS: Hearing grossly intact. Ear canals and tympanic membranes are within normal limits. MOUTH: Oropharynx within normal limits. NECK: Supple, trachea is midline, no adenopathy, no JVD, no carotid bruit, no c- spine tenderness, neck with full ROM. CHEST: Symmetric, no tenderness at palpation LUNGS: Clear to auscultation bilaterally. No wheezing or crackles. CVS: Regular rate and rhythm, S1 and S2 present, no murmurs or gallops appreciated. ABDOMEN: Soft, non-tender. No signs of distention. No rebound no guarding, and no masses palpated. Bowel sounds are normal. EXTREMITIES: FROM in all major joints, no edema, no cyanosis or clubbing. NEURO: Alert and oriented x 3. No acute neurological deficits. Speech is normal and follows commands. SKIN: Dry and warm Triage Information Reviewed: Yes Vital Signs Reviewed: Yes Diagnostics - Laboratory Result Diagrams: 05/22/18 13:26 05/22/18 13:26 Lab Statement: Any lab studies that have been ordered have been reviewed, and results considered in the medical decision making process. - EKG 1 EKG Interpretation: 13:05 - SB @ [address] elevations. EKG Comparison: No Significant Change - 12/26/17 Re-Evaluation - Re-Evaluation 1 Re-Evaluation Time: 16:30 Comment: discussed test results and findings, plan to d/c Chest Pain Course/Dx - Course Assessment/Plan: This patient is a 48-year-old female who presents to the emergency department via ambulance after she was transferred from the primary care physicians office with a chief complaint of having chest pain and shortness of breath. The patient reports that she has history of DVT for which the patient is taken Xarelto. Blood test results without any significant abnormality. 2 separate troponins 4 hours apart is 0.00. D-dimer is negative less than 200. Therefore at this point I have no suspicion for an acute coronary syndrome or PE. Chest x-ray impression: No acute pathology. EKG shows no ST elevations. At this point the patient reports that she is feeling better. She does have any chest pain or shortness of breath. I discussed all the findings and test results with the patient and the need to follow up with the primary care physician. She was instructed to return to the emergency department if she develops any other symptoms or the chest pain or shortness of breath returns. She understands and agrees. She might benefit of and a stress test which probably is going to be scheduled by the primary care physician. She is hemodynamically stable alert and oriented 3. - Diagnoses Provider Diagnoses: Chest pain, Dyspnea Discharge - Sign-Out/Discharge Documenting (check all that apply): Patient Departure - Discharge Plan Condition: Stable Disposition: HOME Patient Education Materials: Chest Pain (ED), Dyspnea (ED) Referrals: Addie Guardado MD [Medical Doctor] - 4 Days (PLEASE F/u IN 3-5 DAYS) Additional Instructions: RETURN TO THE ED FOR CHANGING/WORSENING SYMPTOMS - Billing Disposition and Condition Condition: STABLE Disposition: Home
[2018-05-22 13:39] LABS: ABS Basophils 0 10^3/ul (0-0.2); ABS Eosinophils 0 10^3/ul (0-0.6); ABS Lymphocytes 1.3 10^3/ul (1.0-4.8); ABS Monocytes 0.2 10^3/ul (0-0.8); ABS Neutrophils 4.4 10^3/ul (1.5-7.7); ABS Nucleated RBC 0 10^3/ul; Eosinophil % 0 % (0-6); Hematocrit 40 % (35-47); Hemoglobin 13.5 g/dl (12.0-16.0); Lymphocyte % 22.5 % (25-47); Mean Corpuscular HGB Conc 34 g/dl (31-36); Mean Corpuscular Hemoglobin 28 pg (27-31); Mean Corpuscular Volume 81 fL (80-97); Mean Platelet Volume 8.4 um3 (7.4-10.4); Nucleated Red Blood Cells % 0.1; Platelet Count 246 10^3/ul (150-450); Red Blood Count 4.92 10^6/ul (4.00-5.40); Red Cell Distribution Width 14 % (10.5-15)
[2018-05-22 13:51] LABS: INR 0.86 (0.77-1.02)
[2018-05-22 13:54] LABS: EGFR Non-African American 84.7 (>60)
[2018-05-22 16:15] VITALS: BP 105/56
[2018-05-22 16:55] LABS: Urine Appearance Cloudy; Urine Blood Negative (Negative); Urine Color Yellow; Urine Ketones Negative (Negative); Urine Protein Negative (Negative); Urine Specific Gravity 1.005 (1.010-1.030); Urine Urobilinogen Negative (Negative)
== END 2018-05-22 16:41 | disposition home or self-care (01) ==
LOC: ED 12:51
DX: R07.89 Other chest pain (principal); R06.00 Dyspnea, unspecified; R00.1 Bradycardia, unspecified; Z86.718 Personal history of other venous thrombosis and embolism; Z79.01 Long term (current) use of anticoagulants; F41.9 Anxiety disorder, unspecified; F31.9 Bipolar disorder, unspecified; Z88.0 Allergy status to penicillin; Z88.2 Allergy status to sulfonamides; Z82.49 Family history of ischemic heart disease and other diseases of the circulatory system; Z72.0 Tobacco use
CPT/HCPCS: 36415; 80053; 81003; 82550; 82553; 83605; 83735; 83880; 84443; 84484; 84702; 85025; 85379; 85610; 85730; 93005; 99283

== ENCOUNTER 2019-04-12 09:47 | Inpatient (IN) | payer OTHER ==
--- NOTE | 2019-04-12 10:13 | ED ---
Psychiatric Complaint - HPI Summary HPI Summary: Patient is a 48-year-old female who presents to emergency department for a psychiatric evaluation. Patient has a history of bipolar disorder currently follows with therapist and psychiatrist on a regular basis. Patient is currently on clozapine, lithium and Ativan. Patient states she's been having worsening anxiety over the last several days. She's been having intermittent suicidal thoughts but currently denies any radiation. She has been admitted the past for suicidal attempts. Patient states she spoke with her therapist who recommended coming into the ER for evaluation. Symptoms are moderate in severity. Patient otherwise denies past medical history urinary complaints. No current modifying factors. Patient notes she's been taking her medication daily as prescribed. - History Of Current Complaint Chief Complaint: EDPsychosocial Time Seen by Provider: 04/12/19 09:58 Hx Obtained From: Patient Hx Last Menstrual Period: hyster - Allergies/Home Medications Allergies/Adverse Reactions: Allergies Allergy/AdvReac Type Severity Reaction Status Date / Time Penicillins Allergy Hives Verified 04/12/19 09:49 Sulfa (Sulfonamide Allergy Hives Verified 04/12/19 09:49 Antibiotics) PMH/Surg Hx/FS Hx/Imm Hx Previously Healthy: Yes Endocrine/Hematology History: Reports: Hx Thyroid Disease - HYPOTHYROID Denies: Hx Diabetes Cardiovascular History: Reports: Hx Peripheral Vascular Disease - HAD VARICOSE VEIN SURGERY DONE BOTH LEGS, Other Cardiovascular Problems/Disorders - DVT LEFT LEG X 2 - LAST 10/2013 Denies: Hx Hypertension Respiratory History: Reports: Hx Asthma - PRN INHALER- HAS NOT NEEDED TO IN A LONG TIME Denies: Hx Chronic Obstructive Pulmonary Disease (COPD) GI History: Reports: Other GI Disorders - pt has had diarrhea for year pcp aware Denies: Hx Crohn's Disease, Hx Diverticulosis, Hx Gall Bladder Disease, Hx Gastroesophageal Reflux Disease, Hx Gastrointestinal Bleed, Hx Hiatal Hernia, Hx Irritable Bowel, Hx Jaundice, Hx Obstructive Bowel, Hx Ileostomy, Hx Pyloric Stenosis, Hx Ulcer History: Denies: Hx Dialysis, Hx Kidney Infection, Hx Kidney Stones, Hx Renal Disease , Other Problems/Disorders Sensory History: Reports: Hx Contacts or Glasses - GLASSES Denies: Hx Hearing Aid Opthamlomology History: Reports: Hx Contacts or Glasses - GLASSES Neurological History: Reports: Other Neuro Impairments/Disorders - tardive dyskineshia, vertigo Psychiatric History: Reports: Hx Anxiety - ON MEDICATION FOR, Hx Depression - ON MEDICATION FOR, Hx Bipolar Disorder - PT Denies: Hx of Violent Episodes Against Others - Cancer History Hx Chemotherapy: No Hx Radiation Therapy: No - Surgical History Surgery Procedure, Year, and Place: varicose vein [id number]. breast reduction x 25 yrs AGO. HYSTERECTOMY 03/2014-[place] Hx Anesthesia Reactions: No - Immunization History Date of Tetanus Vaccine: unk Date of Influenza Vaccine: none Infectious Disease History: No Infectious Disease History: Denies: Hx Clostridium Difficile, Hx Hepatitis, Hx Human Immunodeficiency Virus (HIV), Hx of Known/Suspected MRSA, Hx Shingles, Hx Tuberculosis, Hx Known/ Suspected VRE, Hx Known/Suspected VRSA, History Other Infectious Disease, Traveled Outside the [place] in Last 30 Days - Family History Known Family History: Positive: Hypertension, Non-Contributory - Social History Occupation: Unemployed Lives: Alone Alcohol Use: Occasionally Alcohol Amount: 6 DRINKS PER WEEK- PATIENT STATES IS IN THE PROCESS OF QUITTING Substance Use Type: Reports: None Hx Tobacco Use: Yes Smoking Status (MU): Former Smoker Amount Used/How Often: OFF AND ON SOCIALLY 20 YEARS Review of Systems Cardiovascular: Negative Respiratory: Negative Gastrointestinal: Negative Neurological: Negative Positive: Anxious All Other Systems Reviewed And Are Negative: Yes Physical Exam Triage Information Reviewed: Yes Vital Signs On Initial Exam: Initial Vitals Temp Pulse Resp BP Pulse Ox 98.4 F 90 18 107/72 97 04/12/19 09:50 04/12/19 09:50 04/12/19 09:50 04/12/19 09:50 04/12/19 09:50 Vital Signs Reviewed: Yes Appearance: Positive: Well-Nourished - Pt. sitting up in bed in NAD. Tearful at times. Cooperative. Skin: Positive: Warm, Dry, Other - tattoo across upper chest. Head/Face: Positive: Normal Head/Face Inspection Eyes: Positive: Normal, EOMI, KURT Neck: Positive: Supple Neurological: Positive: Normal, Alert, Oriented to Person Place, Time, CN Intact II-III Psychiatric: Positive: Anxious, Depressed Diagnostics - Vital Signs Vital Signs Temp Pulse Resp BP Pulse Ox 04/12/19 09:50 98.4 F 90 18 107/72 97 - Laboratory Result Diagrams: 04/12/19 11:09 Lab Statement: Any lab studies that have been ordered have been reviewed, and results considered in the medical decision making process. Course/Dx - Course Course Of Treatment: Patient presenting with worsening anxiety and a history of bipolar disorder. She currently denies suicidal or homicidal ideations. We'll obtain mental health evaluation. Pt. examined by MH and psychiatry consulted they will plan on admission to [facility]. - Differential Dx/Clinical Impression Differential Diagnosis/HQI/PQRI: Positive: Acute Psychosis, Anxiety, Bipolar Disorder, Depression Provider Diagnosis: Anxiety, Bipolar disorder Discharge - Sign-Out/Discharge Documenting (check all that apply): Patient Departure Patient Received Moderate/Deep Sedation with Procedure: No - Discharge Plan Condition: Stable [facility] [place] Referrals: Austin Brenner MD [Primary Care Provider] - - Billing Disposition and Condition Condition: STABLE Disposition: Psychiatric Facility [facility] [place]
[2019-04-12] MEDS ORDERED: Al Hydrox/Mg Hydrox/Simet LIQ* 30 ML UDC PO PRN (10:46)
[2019-04-12] MEDS ORDERED: Acetaminophen TAB* 325 MG PO PRN (10:46)
[2019-04-12 11:26] LABS: ABS Lymphocytes 1.1 10^3/ul (1.0-4.8); ABS Monocytes 0.3 10^3/ul (0-0.8); ABS Neutrophils 6.1 10^3/ul (1.5-7.7); Hematocrit 43 % (35-47); Lymphocyte % 14.5 %; Mean Corpuscular HGB Conc 33 g/dL (31-36); Mean Corpuscular Hemoglobin 27 pg (27-31); Mean Corpuscular Volume 82 fL (80-97); Mean Platelet Volume 8.9 fL (7.4-10.4); Nucleated Red Blood Cells % 0.1; Platelet Count 270 10^3/uL (150-450); Red Blood Count 5.19 10^6 /uL (3.70-4.87); Red Cell Distribution Width 14 % (10-15); White Blood Count 7.5 10^3/uL (3.5-10.8)
[2019-04-12 11:47] LABS: ALT 17 U/L (7-52); AST 15 U/L (13-39); Acetaminophen < 15 mcg/mL; Albumin 4.2 g/dL (3.2-5.2); Albumin/Globulin Ratio 1.4 (1-3); Alcohol < 10 mg/dL (<10); Alkaline Phosphatase 61 U/L (34-104); Anion Gap 4 mmol/L (2-11); BUN/Creatinine Ratio 15.9 (8-20); Blood Urea Nitrogen 10 mg/dL (6-24); CO2 Carbon Dioxide 26 mmol/L (22-32); Calcium 9.9 mg/dL (8.6-10.3); Chloride 111 mmol/L (101-111); EGFR African American 121.5 (>60); EGFR Non-African American 100.4 (>60); Globulin 2.9 g/dL (2-4); Glucose 101 mg/dL (70-100); Lithium 0.86 mmol/L (0.6-1.2); Potassium 4.1 mmol/L (3.5-5.0); Salicylate < 2.50 mg/dL (<30); Sodium 141 mmol/L (135-145); Total Protein 7.1 g/dL (6.4-8.9)
[2019-04-12 12:01] LABS: TSH (Thyroid Stimulating Horm) 1.15 mcIU/mL (0.34-5.60)
--- NOTE | 2019-04-12 12:45 | HP ---
H&P (Free Text) History and Physical: Justification for admission: Immediate Safety. CC " My anxiety is getting worse" The patient was brought to [facility] on the recommendation of her therapist. She reported feeling more anxiously lately and has has thoughts that life is no longer worth living. She has been preoccupied with morbid thoughts such as imagining what it was like for her son to find his father from suicide last January. She reported having increased panic attacks at nighttime. She denied access to firearms or stockpiles of medications. She reported poor sleep and appetite lately. The patient denied homicidal ideation intent or plan. The patient denied auditory and/ or visual hallucinations. She has been compliant with medications and denied side effects from current medication. She enjoys watching the news, reading and MDD She reported feeling depressed and having diminished interests which were found to be enjoyable in the past. Lately she reported crying spells , feeling with feelings of hopelessness, and worthlessness. She denied unintentional weight loss and appetite. Reported interruption of sleep with increased anxiety and difficulty with falling asleep. Anxiety Reported having symptoms of anxiety such as having times where heart feels that it is beating out of chest , sweaty palms, or shallow breathing mostly occurring at nighttime. Bipolar Reported having hypomanic symptoms in the past where she thought she had abilities that were unrealistic and of magical. During those times her moods would be characterized as highs and lows. During those times she has a increase in intensity in goal directed activities Psychosis Does not endorse hearing things that other people do not hear or seeing things other people do not see. Denied feeling that TV is making references. Denied feeling that people are spying , following , or reading their thoughts. Phobias: Patient denied having excessive fear of a particular thing or situation. Eating disorders: Patient denied having excessive eating habits or feelings of guilt after eating. Denied repeated episodes of self induced vomiting after eating. PTSD Denied flashbacks, nightmares and avoidance of a prior traumatic event. PAST PSYCHIATRIC HISTORY: Prior Diagnosis : Bipolar II disorder History of past Psychiatric Hospitalizations: 2 prior psychiatric admissions History of past suicide/homicide attempts : 2 past suicide attempts following overdosing with pills. 1st admission at age [age] years old following a overdose with Asprin. and second was at the age of 32. Denied past violence or homicidal incidents. Outpatient follow-up: Dr. Middleton at [facility] and her therapist is Trixie Borjas Medications: Past trials of medications include Ativan 1mg TID (start date 1 year ago) confirmed on [place] PM , Clozapine 250mg qhs, lithium 900mg qhs. Guardianship: None. FAMILY HISTORY: - Suicide: Unknown due to being adopted and not knowing her biological family - Mental illness: Unknown due to being adopted and not knowing her biological family - Substance abuse: Unknown due to being adopted and not knowing her biological family SUBSTANCE ABUSE HISTORY: Denied using tobacco, heroin cocaine or other illicit substances. Denied recreationally abusing pills. Currently in AA and has been sober 4 years from alcohol. - EtOH: Prior history of alcohol abuse, no current use in the last year. SOCIAL HISTORY: She was adopted and currently lives in [place] alone in a apartment. She denied a history of sexual and or physical abuse. She is and has 2 sons aged 17 and 27 who do not live with her. 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 - Legal history: Denied - service history: Denied PAST MEDICAL HISTORY: History of deep venous thrombosis. Denied heart disease, diabetes, cancer, seizure disorder, TBI. - Allergies: Penicillin Physical Exam: Please see ED note Mental Status Exam on Admission APPEARANCE : 48 year old female who appears stated age with tattoos across her chest . Patient is not malodourous, and appears to have fair hygiene and grooming. BEHAVIOR: Cooperative , calm EYE CONTACT: Fair PSYCHOMOTOR ACTIVITY: No psychomotor agitation or retardation. MOVEMENTS: No abnormal movements observed. SPEECH : Normal rate, rhythm, volume and tone. MOOD : "Sad " AFFECT : Type is depressed, Range is restricted with shallow depth Mood Congruent Labile THOUGHT PROCESS: Formulated and organized in a logical, linear goal directed manner. No flight of ideas, neologism (made up words) , perseveration , tangential , loose associations , or circumstantiality. THOUGHT CONTENT: no delusions, obsessions, phobias or preoccupations. PERCEPTION: No current auditory or visual hallucinations. Doesnt appear to be responding to internal cues. No evidence of depersonalization , de-realization, or illusions SUICIDALITY Current suicidal ideation HOMICIDALITY Denied homicidal ideation, intent or plan. Insight/judgment: Fair insight and judgment ORIENTATION: Oriented to self, location, and time. Diagnosis on Admission: Bipolar II disorder, current depressive episode. History of alcohol use disorder currently in remission. Assessment: 48 year old female with history of bipolar II disorder came to the hospital with suicidal ideation and was admitted to the [facility]SU at [facility]. Plan #Admit to BSU, Q15 minute observation. Start regular diet. Encourage participation in activities on the milieu. #Patient evaluated in ED and was determined by the emergency room Physician to be medically fit for admission to the BSU. # Justification for Admission: For immediate safety per outlined in the [facility] Hygiene Code. # Voluntary admission. The patient requires inpatient admission at this time to assure safety, receive treatment and work toward stabilization. # Labs ordered: CBC, CMP, UDS, TSH, HBA1c, TSH, lithium level Toxicology screen , Urine analysis, and lipid profile. EKG ordered for risk of QT prolongation of antipsychotic medication. # Obtain collateral information once release is signed. # Collaboration with Social Work to assist with disposition and after care. #Will resume home medications. [place] level 0.86 Continue AA for past history of alcohol abuse. #Goals before discharge include: To eliminate/ reduce suicidal ideation [place] level/ WBC/ ANC within normal limits. Confirmed Ativan dose and provider with [facility] no indication of diversion or abuse. Last filled on 04/08/19. Started taking one year ago. The risks, benefits, and alternative treatment options were discussed as well as of the risks of refusing treatment. After this discussion and an acknowledgement of this understanding was made. A risk/ benefit assessment of treatment was considered and discussed with the patient. When comparing the risks of treatment with the dangers of not receiving treatment, the benefits of treatment outweigh the treatment risks at this time. Risks of allergy, suicidal ideation, behavioral changes, dystonia, rashes, electrolyte imbalances, movement disorders, cardiac conduction changes, serotonin syndrome, metabolic risks and NMS were among some of the risks discussed. Acetaminophen (Tylenol Tab*) 650 mg PO Q4H PRN PRN Reason: for pain; or Temp >101 F Al Hydrox/Mg Hydrox/Simethicone (Maalox Plus*) 30 ml PO Q4H PRN PRN Reason: INDIGESTION Clozapine (Clozapine Tab*) 250 mg PO BEDTIME NANDINI Hydroxyzine HCl (Atarax Tab*) 50 mg PO Q6H PRN PRN Reason: ANXIETY [place] Carbonate ([place] Carbonate Er Tab*) 900 mg PO BEDTIME NANDINI Lorazepam (Ativan Tab(*)) 1 mg PO TID NANDINI Laboratory Results WBC 7.5 10^3/uL (3.5-10.8) 04/12/19 11:09 RBC 5.19 10^6 /uL (3.70-4.87) H 04/12/19 11:09 Hgb 14.0 g/dL (12.0-16.0) 04/12/19 11:09 Hct 43 % (35-47) 04/12/19 11:09 MCV 82 fL (80-97) 04/12/19 11:09 MCH 27 pg (27-31) 04/12/19 11:09 MCHC 33 g/dL (31-36) 04/12/19 11:09 RDW 14 % (10-15) 04/12/19 11:09 Plt Count 270 10^3/uL (150-450) 04/12/19 11:09 MPV 8.9 fL (7.4-10.4) 04/12/19 11:09 Neut % (Auto) 81.3 % 04/12/19 11:09 Lymph % (Auto) 14.5 % 04/12/19 11:09 [place] % (Auto) 3.8 % 04/12/19 11:09 Eos % (Auto) 0.0 % 04/12/19 11:09 Baso % (Auto) 0.4 % 04/12/19 11:09 Absolute Neuts (auto) 6.1 10^3/ul (1.5-7.7) 04/12/19 11:09 Absolute Lymphs (auto) 1.1 10^3/ul (1.0-4.8) 04/12/19 11:09 Absolute Monos (auto) 0.3 10^3/ul (0-0.8) 04/12/19 11:09 Absolute Eos (auto) 0.0 10^3/ul (0-0.6) 04/12/19 11:09 Absolute Basos (auto) 0.0 10^3/ul (0-0.2) 04/12/19 11:09 Absolute Nucleated RBC 0.0 10^3/ul 04/12/19 11:09 Nucleated RBC % 0.1 04/12/19 11:09 Sodium 141 mmol/L (135-145) 04/12/19 11:09 Potassium 4.1 mmol/L (3.5-5.0) 04/12/19 11:09 Chloride 111 mmol/L (101-111) 04/12/19 11:09 Carbon Dioxide 26 mmol/L (22-32) 04/12/19 11:09 Anion Gap 4 mmol/L (2-11) 04/12/19 11:09 BUN 10 mg/dL (6-24) 04/12/19 11:09 Creatinine 0.63 mg/dL (0.51-0.95) 04/12/19 11:09 Est GFR ( Amer) 121.5 (>60) 04/12/19 11:09 Est GFR (Non-Af Amer) 100.4 (>60) 04/12/19 11:09 BUN/Creatinine Ratio 15.9 (8-20) 04/12/19 11:09 Glucose 101 mg/dL (70-100) H 04/12/19 11:09 Calcium 9.9 mg/dL (8.6-10.3) 04/12/19 11:09 Total Bilirubin 0.40 mg/dL (0.2-1.0) 04/12/19 11:09 AST 15 U/L (13-39) 04/12/19 11:09 ALT 17 U/L (7-52) 04/12/19 11:09 Alkaline Phosphatase 61 U/L (34-104) 04/12/19 11:09 Total Protein 7.1 g/dL (6.4-8.9) 04/12/19 11:09 Albumin 4.2 g/dL (3.2-5.2) 04/12/19 11:09 Globulin 2.9 g/dL (2-4) 04/12/19 11:09 Albumin/Globulin Ratio 1.4 (1-3) 04/12/19 11:09 TSH 1.15 mcIU/mL (0.34-5.60) 04/12/19 11:09 Salicylates < 2.50 mg/dL (<30) 04/12/19 11:09 Acetaminophen < 15 mcg/mL 04/12/19 11:09 [place] 0.86 mmol/L (0.6-1.2) 04/12/19 11:09 Serum Alcohol < 10 mg/dL (<10) 04/12/19 11:09
[2019-04-12] MEDS: LORazepam TAB(*) 1 MG PO SCH ×2 (13:22→20:22)
[2019-04-12] MEDS: Lithium Carbonate ER* 450 MG TAB.ER PO SCH (20:22)
[2019-04-12] MEDS: CloZAPine TAB* 100 MG TAB PO SCH (20:23)
[2019-04-12] MEDS: hydrOXYzine HCL TAB* 50 MG PO PRN (22:00)
[2019-04-13] MEDS: LORazepam TAB(*) 1 MG PO SCH ×3 (09:37→19:58)
[2019-04-13] MEDS: hydrOXYzine HCL TAB* 50 MG PO PRN (13:08)
[2019-04-13] MEDS: CloZAPine TAB* 100 MG TAB PO SCH (19:58)
[2019-04-13] MEDS: Lithium Carbonate ER* 450 MG TAB.ER PO SCH (20:00)
[2019-04-14 08:24] LABS: HDL Cholesterol 37.4 mg/dL
[2019-04-14] MEDS: LORazepam TAB(*) 1 MG PO SCH ×3 (10:00→20:18)
[2019-04-14] MEDS: hydrOXYzine HCL TAB* 50 MG PO PRN ×2 (10:39→20:20)
--- NOTE | 2019-04-14 19:55 | PN ---
Subjective - Subjective Date of Service: 04/14/19 Service Type: 86396 Hosp care 25 min moderate complexity Subjective: Stephanie continues to depressed and tired despite good sleep last night. Says she down because of the father's day and loss of her sons' father from suicide last January. Was able to make contact with her older son but her younger son willn't talk to her. Still battling her alcoholism with inermittent relapses. Also having difficulty finding a sponsor. Objective - General Observations Appearance: Well Groomed Appears Stated Age: Yes Stature: WNL Posture: WNL Eye Contact: Average Behavior/Activity: WNL - Interaction Observations Attitude Towards Examiner: Cooperative Stated Mood: Dysphoric Affect: Restricted Speech Pattern/Tone: Clear Thought Process: Coherent, Goal Directed Perception: WNL Thought Content: WNL Hallucination Type: None Delusion Type: None - Cognitive Function Orientation: A&O x 4 Level of Consciousness: Awake, Alert, Appropriate Cognition: WNL Estimated Intelligence: Normal Insight: WNL Judgment Within Normal Limits: No Ability to Make Reasonable Decisions: Moderately Impaired - Medication Compliance Cooperative with Inpatient Medication Regimen: Yes - Group Participation Participates in Group Activities: Yes Assessment - Assessment Merits Inpatient Hospitalization: For Immediate Safety, For Stabilization, For Ongoing Evaluation, Pending Safe DC Plan Plan - Plan Treatment Plan: Name: STEPHANIE NIETO Birthdate: 1970 [id number] Continued Medication Management: Continue Outpt Medication Medications: Current Medications Acetaminophen (Tylenol Tab*) 650 mg PO Q4H PRN PRN Reason: for pain; or Temp >101 F Al Hydrox/Mg Hydrox/Simethicone (Maalox Plus*) 30 ml PO Q4H PRN PRN Reason: INDIGESTION Clozapine (Clozapine Tab*) 250 mg PO BEDTIME NANDINI Last Admin: 04/13/19 19:58 Dose: 250 mg Hydroxyzine HCl (Atarax Tab*) 50 mg PO Q6H PRN PRN Reason: ANXIETY Last Admin: 04/14/19 10:39 Dose: 50 mg [place] Carbonate ([place] Carbonate Er Tab*) 900 mg PO BEDTIME NANDINI Last Admin: 04/13/19 20:00 Dose: 900 mg Lorazepam (Ativan Tab(*)) 1 mg PO TID NANDINI Last Admin: 04/14/19 14:34 Dose: 1 mg - Discharge Plan Discharge Plan: Outpatient Follow Up Outpatient Program: [facility]
[2019-04-14] MEDS: CloZAPine TAB* 100 MG TAB PO SCH (20:17)
[2019-04-14] MEDS: Lithium Carbonate ER* 450 MG TAB.ER PO SCH (20:18)
[2019-04-15] MEDS: LORazepam TAB(*) 1 MG PO SCH ×3 (07:38→20:52)
--- NOTE | 2019-04-15 11:30 | PN ---
Subjective - Subjective Date of Service: 04/15/19 Service Type: 84246 Hosp care 35 min high complexity Subjective: Nursing Report: Patient was visible on unit, no chemical restraints Slept overnight without incident. Attending group activities. CC: "I am doing better Patient was seen and evaluated today in the common room. She reported that hydroxyzine helped her anxiety immensely. The patient reported she feels safe on the unit and is interacting with peers. She reported having an adequate appetite and sleep. The patient reports attending and participating in day groups. Per nursing no behavioral issues or overnight events reported. Patient reported that she is tolerating medications without side effects. She is looking forward to seeing her dog when she returns home. Her friend Becky visited over the weekend. She reported having a colonoscopy March 28 to rule out crohns disease and colitis and is on a modified diet that helps with having GI issues. She attended AA over the weekend and DBT groups Objective - General Observations Appearance: Neat Appears Stated Age: Yes Stature: WNL Posture: WNL Eye Contact: Average Behavior/Activity: WNL - Interaction Observations Attitude Towards Examiner: Cooperative Stated Mood: Euthymic Affect: Blunted Speech Pattern/Tone: Clear Thought Process: Coherent Perception: WNL Thought Content: WNL Hallucination Type: None Delusion Type: None - Cognitive Function Orientation: A&O x 4 Level of Consciousness: Awake - Medication Compliance Cooperative with Inpatient Medication Regimen: Yes - Group Participation Participates in Group Activities: Yes Assessment - Assessment Clinical Impression: 49 year old female with a history of bipolar II disorder , presented to the ER with anxiety and depression, over the course of treatment she has shown improvement and tentative discharge for tomorrow Plan - Plan Treatment Plan: Name: STEPHANIE NIETO Birthdate: 1970 [id number] #Q30 minute observation with staff pass # The patient requires inpatient admission at this time to assure safety, receive treatment and work toward stabilization. # Collaboration with [facility] Supervisor Gideon Argueta # [place] level 0.86 Continue AA for past history of alcohol abuse. #Goals before discharge include: To eliminate/ reduce suicidal ideation [place] level/ WBC/ ANC within normal limits. Confirmed Ativan dose and provider with [facility] no indication of diversion or abuse. Last filled on 04/08/19. Started taking one year ago. Tentative discharge Monday to return to her apartment plans to drive herself home. Sodium 141 mmol/L (135-145) 04/12/19 11:09 Potassium 4.1 mmol/L (3.5-5.0) 04/12/19 11:09 BUN 10 mg/dL (6-24) 04/12/19 11:09 Creatinine 0.63 mg/dL (0.51-0.95) 04/12/19 11:09 Hemoglobin A1c 5.2 % (4.0-5.6) 04/14/19 07:51 Calcium 9.9 mg/dL (8.6-10.3) 04/12/19 11:09 AST 15 U/L (13-39) 04/12/19 11:09 ALT 17 U/L (7-52) 04/12/19 11:09 Triglycerides 292 mg/dL 04/14/19 07:51 Cholesterol 196 mg/dL 04/14/19 07:51 LDL Cholesterol 100 mg/dL 04/14/19 07:51 Vital Signs Temp Pulse Resp BP Pulse Ox 98.0 F 87 16 113/70 100 04/15/19 08:00 04/15/19 08:00 04/15/19 13:40 04/15/19 08:00 04/15/19 08:00 Continued Medication Management: Continue Outpt Medication Medications: Current Medications Acetaminophen (Tylenol Tab*) 650 mg PO Q4H PRN PRN Reason: for pain; or Temp >101 F Al Hydrox/Mg Hydrox/Simethicone (Maalox Plus*) 30 ml PO Q4H PRN PRN Reason: INDIGESTION Last Admin: 04/15/19 09:30 Dose: 30 ml Clozapine (Clozapine Tab*) 250 mg PO BEDTIME NANDINI Last Admin: 04/14/19 20:17 Dose: 250 mg Hydroxyzine HCl (Atarax Tab*) 50 mg PO Q6H PRN PRN Reason: ANXIETY Last Admin: 04/14/19 20:20 Dose: 50 mg [place] Carbonate ([place] Carbonate Er Tab*) 900 mg PO BEDTIME NANDINI Last Admin: 04/14/19 20:18 Dose: 900 mg Lorazepam (Ativan Tab(*)) 1 mg PO TID NANDINI Last Admin: 04/15/19 07:38 Dose: 1 mg - Discharge Plan Discharge Plan: Inpatient Hospitalization
[2019-04-15] MEDS: hydrOXYzine HCL TAB* 50 MG PO PRN ×2 (14:27→20:52)
[2019-04-15] MEDS: CloZAPine TAB* 100 MG TAB PO SCH (20:52)
[2019-04-15] MEDS: Lithium Carbonate ER* 450 MG TAB.ER PO SCH (20:53)
[2019-04-16] MEDS: LORazepam TAB(*) 1 MG PO SCH (07:57)
--- NOTE | 2019-04-16 08:40 | DS ---
Subjective - Subjective Service Types: [address] [facility] Day Mgmt complex over 30 min Discharge Date: 04/16/19 Subjective: CC: " I am better" Patient looks forward to seeing her dog. The patient was seen and evaluated before discharge today. The patient reported having adequate appetite and sleep. The patient reports attending and participating in day groups. Per nursing no behavioral issues or overnight events reported. Patient reported tolerating medications without side effects. Justification for admission: Immediate Safety. CC " My anxiety is getting worse" The patient was brought to [facility] on the recommendation of her therapist. She reported feeling more anxiously lately and has has thoughts that life is no longer worth living. She has been preoccupied with morbid thoughts such as imagining what it was like for her son to find his father from suicide last January. She reported having increased panic attacks at nighttime. She denied access to firearms or stockpiles of medications. She reported poor sleep and appetite lately. The patient denied homicidal ideation intent or plan. The patient denied auditory and/ or visual hallucinations. She has been compliant with medications and denied side effects from current medication. She enjoys watching the news, reading and MDD She reported feeling depressed and having diminished interests which were found to be enjoyable in the past. Lately she reported crying spells , feeling with feelings of hopelessness, and worthlessness. She denied unintentional weight loss and appetite. Reported interruption of sleep with increased anxiety and difficulty with falling asleep. Anxiety Reported having symptoms of anxiety such as having times where heart feels that it is beating out of chest , sweaty palms, or shallow breathing mostly occurring at nighttime. Bipolar Reported having hypomanic symptoms in the past where she thought she had abilities that were unrealistic and of magical. During those times her moods would be characterized as highs and lows. During those times she has a increase in intensity in goal directed activities Psychosis Does not endorse hearing things that other people do not hear or seeing things other people do not see. Denied feeling that TV is making references. Denied feeling that people are spying , following , or reading their thoughts. Phobias: Patient denied having excessive fear of a particular thing or situation. Eating disorders: Patient denied having excessive eating habits or feelings of guilt after eating. Denied repeated episodes of self induced vomiting after eating. PTSD Denied flashbacks, nightmares and avoidance of a prior traumatic event. PAST PSYCHIATRIC HISTORY: Prior Diagnosis : Bipolar II disorder History of past Psychiatric Hospitalizations: 2 prior psychiatric admissions History of past suicide/homicide attempts : 2 past suicide attempts following overdosing with pills. 1st admission at age [age] years old following a overdose with Asprin. and second was at the age of 32. Denied past violence or homicidal incidents. Outpatient follow-up: Dr. Middleton at [facility] and her therapist is Trixie Borjas Medications: Past trials of medications include Ativan 1mg TID (start date 1 year ago) confirmed on [place] PM , Clozapine 250mg qhs, lithium 900mg qhs. Guardianship: None. FAMILY HISTORY: - Suicide: Unknown due to being adopted and not knowing her biological family - Mental illness: Unknown due to being adopted and not knowing her biological family - Substance abuse: Unknown due to being adopted and not knowing her biological family SUBSTANCE ABUSE HISTORY: Denied using tobacco, heroin cocaine or other illicit substances. Denied recreationally abusing pills. Currently in AA and has been sober 4 years from alcohol. - EtOH: Prior history of alcohol abuse, no current use in the last year. SOCIAL HISTORY: She was adopted and currently lives in [place] alone in a apartment. She denied a history of sexual and or physical abuse. She is and has 2 sons aged 17 and 27 who do not live with her. 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 - Legal history: Denied - service history: Denied PAST MEDICAL HISTORY: History of deep venous thrombosis. Denied heart disease, diabetes, cancer, seizure disorder, TBI. - Allergies: Penicillin Physical Exam: Please see ED note Mental Status Exam on Admission APPEARANCE : 48 year old female who appears stated age with tattoos across her chest . Patient is not malodourous, and appears to have fair hygiene and grooming. BEHAVIOR: Cooperative , calm EYE CONTACT: Fair PSYCHOMOTOR ACTIVITY: No psychomotor agitation or retardation. MOVEMENTS: No abnormal movements observed. SPEECH : Normal rate, rhythm, volume and tone. MOOD : "Sad " AFFECT : Type is depressed, Range is restricted with shallow depth Mood Congruent Labile THOUGHT PROCESS: Formulated and organized in a logical, linear goal directed manner. No flight of ideas, neologism (made up words) , perseveration , tangential , loose associations , or circumstantiality. THOUGHT CONTENT: no delusions, obsessions, phobias or preoccupations. PERCEPTION: No current auditory or visual hallucinations. Doesnt appear to be responding to internal cues. No evidence of depersonalization , de-realization, or illusions SUICIDALITY Current suicidal ideation HOMICIDALITY Denied homicidal ideation, intent or plan. Insight/judgment: Fair insight and judgment ORIENTATION: Oriented to self, location, and time. Diagnosis on Admission: Bipolar II disorder, current depressive episode. History of alcohol use disorder currently in remission. Diagnosis on Discharge: Bipolar II disorder, in partial remission. History of alcohol use disorder currently in remission. Condition at the time of discharge: At the time of discharge patient showed improvement of sleep and appetite. The patient was not a danger to self or others. The patient denied suicidal ideation , intent or plan. The patient denied homicidal targets, ideation, intent or plan. This patient participated in psychosocial rehabilitation and gained some insight into problems. The patient gained insight into mental illness, triggers, and treatment. The patient took medication as prescribed. The patient denied side effects of medication and objective signs of side effects were not evident. Therapy Resources were offered to the patient. Patient was given a supply of prescriptions at the time of discharge. The patient plans to attend follow up care with the follow up arrangements that were discussed and put in place. Patient was asked to keep appointments as scheduled, take medication as prescribed, have routine follow up care with their primary care physician and refrain from any use of alcohol or drugs. Objective - General Observations Appearance: Neat Appears Stated Age: Yes Stature: WNL Posture: WNL Eye Contact: Average Behavior/Activity: WNL - Interaction Observations Attitude Towards Examiner: Cooperative Stated Mood: Euthymic Affect: Blunted Speech Pattern/Tone: Clear Thought Process: Coherent Perception: WNL Thought Content: WNL Hallucination Type: None Delusion Type: None - Cognitive Function Orientation: A&O x 4 Level of Consciousness: Awake Cognition: WNL - Medication Compliance Cooperative with Inpatient Medication Regimen: Yes - Group Participation Participates in Group Activities: Yes Treatment Course & Assessment Clinical Course & Impression: Hospital course part A: 49 year old female with a history of bipolar II disorder , presented to the ER with anxiety and depression, she has shown improvement over the course of treatment. Hospital course part B: Labs ordered included CBC, CMP, UDS, TSH, HBA1c, TSH, Toxicology screen, Urine analysis, and lipid profile. Labs were reviewed and did not require the need for further evaluation. Vital signs were monitored during the course of admission. The patient was admitted to the adult behavioral unit and placed on 15 minute check for safety. At a later time the patient was on Q30 minute observation and staff pass privileges. With those limits being extended , there were no occurrence of behavioral incidents. The patient did well on the unit and went to groups. Interacted with peers had adequate sleep and regular appetite. Tolerated medication changes without side effects. Group therapy and services were offered. The risks, benefits, and alternative treatment options were discussed as well as of the risks of refusing treatment. Treatment associated risks discussed. After this discussion made an acknowledgement of this understanding. Follow up care appointments were put in place for follow up care. The importance of monitoring for metabolic changes was discussed and acknowledgement of this understanding was made. Improvements in patient from the time of admission include: Improved affect, sleep and decrease in anxiety. No longer suicidal and no longer having feelings of hopelessness. The patient expressed readiness for discharge home. The patient presents with a broader range of affect, and the absence of depressed mood, delusions, perceptual disturbances. The patient denied suicidal and or homicidal ideation intent or plan. Overall, the patient responded well to inpatient treatment as evidenced by their report of strengthening of coping mechanisms, reduced distress, and more positive outlook on circumstances. Of note there was an improvement of recognizing how emotional state can effect mood and behavior. Safety precautions were put in place which included involving the patient and their therapist to closely monitor for changes in mental state. In addition, implementing follow up care, screening for the need to remove/securing firearms , weapons and stockpile of medications. Patient/ family instructed to immediately call 911 should any safety concerns arise. Confirmed Ativan dose and provider with [facility] no indication of diversion or abuse. Last filled on 04/08/19. Started taking one year ago. Patient advised of the lethality and dangerousness of combining medications with pain medications and/ or with alcohol and acknowledged this understanding. AIMS was performed and insignificant for involuntary movement disorders. The patient was advised of the 24 hour / 7 days a week availability of the emergency room and to call 911 in the event of an emergency such as being suicidal and/ or homicidal. The patient was informed of the contact information for [facility], Suicide Prevention and Crisis Services, National Suicide Prevention Lifeline, [facility], Alcoholics Anonymous, and [facility]. [place] level 0.86 and within normal limits. [place] level/ WBC/ ANC within normal limits. They tolerated medications and were advised about the importance of monitoring medication levels after leaving the hospital. Patient has remained sober for a substantial period of time and will continue to follow up at . Patient stated that she would never end her life because she would never want her son to endure having both parents by suicide . She found hydroxyzine to have a good response on her anxiety and was provided that upon discharge. She plans to have more contact with her friends and looks forward to seeing her dog. Patient will be discharged to live at home. Follow up appointments at [facility] on , April 18 at 11:15AM. and Dr. Middleton on April 19 at 9:30AM. PCP Dr. Avila. Patient informed of follow up appointment times. See more details for follow up care in the discharge plan. Risk factors: , Age, single, history of mental illness. Prior history of suicide attempt. Recent anniversary of of her former partner and sons father. Protective factors: Currently no suicidal ideation, intent or plan. She has children. Has strong support system. No history of service. Currently no feelings of hopelessness, not in an occupation of social isolation, doesnt have multiple medical conditions, no family history of suicide, doesnt have access to firearms. Doesnt have command hallucinations and or psychotic features at this time. No current substance abuse. No current alcohol abuse. No changes in relationship status, housing, job, or school. Currently future orientated. Patient engaged in treatment and compliant with medication. Medications included restarting home medications: Acetaminophen (Tylenol Tab*) 650 mg PO Q4H PRN PRN Reason: for pain; or Temp >101 F Al Hydrox/Mg Hydrox/Simethicone (Maalox Plus*) 30 ml PO Q4H PRN PRN Reason: INDIGESTION Last Admin: 04/15/19 09:30 Dose: 30 ml Clozapine (Clozapine Tab*) 250 mg PO BEDTIME NANDINI Last Admin: 04/15/19 20:52 Dose: 250 mg Hydroxyzine HCl (Atarax Tab*) 50 mg PO Q6H PRN PRN Reason: ANXIETY Last Admin: 04/15/19 20:52 Dose: 50 mg [place] Carbonate ([place] Carbonate Er Tab*) 900 mg PO BEDTIME NANDINI Last Admin: 04/15/19 20:53 Dose: 900 mg Lorazepam (Ativan Tab(*)) 1 mg PO TID NANDINI Last Admin: 04/16/19 07:57 Dose: 1 mg Laboratory Tests 04/12/19 04/12/19 04/14/19 11:09 11:09 07:51 WBC 7.5 RBC 5.19 H Hgb 14.0 Hct 43 MCV 82 MCH 27 MCHC 33 RDW 14 Plt Count 270 MPV 8.9 Neut % (Auto) 81.3 Lymph % (Auto) 14.5 Bledsoe % (Auto) 3.8 Eos % (Auto) 0.0 Baso % (Auto) 0.4 Absolute Neuts (auto) 6.1 Absolute Lymphs (auto) 1.1 Absolute Monos (auto) 0.3 Absolute Eos (auto) 0.0 Absolute Basos (auto) 0.0 Absolute Nucleated RBC 0.0 Nucleated RBC % 0.1 Sodium 141 Potassium 4.1 Chloride 111 Carbon Dioxide 26 Anion Gap 4 BUN 10 Creatinine 0.63 Est GFR ( Amer) 121.5 Est GFR (Non-Af Amer) 100.4 BUN/Creatinine Ratio 15.9 Glucose 101 H Hemoglobin A1c Calcium 9.9 Total Bilirubin 0.40 AST 15 ALT 17 Alkaline Phosphatase 61 Total Protein 7.1 Albumin 4.2 Globulin 2.9 Albumin/Globulin Ratio 1.4 Triglycerides 292 Cholesterol 196 LDL Cholesterol 100 HDL Cholesterol 37.4 TSH 1.15 Salicylates < 2.50 Acetaminophen < 15 [place] 0.86 Serum Alcohol < 10 04/14/19 07:51 WBC RBC Hgb Hct MCV MCH MCHC RDW Plt Count MPV Neut % (Auto) Lymph % (Auto) Bledsoe % (Auto) Eos % (Auto) Baso % (Auto) Absolute Neuts (auto) Absolute Lymphs (auto) Absolute Monos (auto) Absolute Eos (auto) Absolute Basos (auto) Absolute Nucleated RBC Nucleated RBC % Sodium Potassium Chloride Carbon Dioxide Anion Gap BUN Creatinine Est GFR ( Amer) Est GFR (Non-Af Amer) BUN/Creatinine Ratio Glucose Hemoglobin A1c 5.2 Calcium Total Bilirubin AST ALT Alkaline Phosphatase Total Protein Albumin Globulin Albumin/Globulin Ratio Triglycerides Cholesterol LDL Cholesterol HDL Cholesterol TSH Salicylates Acetaminophen [place] Serum Alcohol Merits Inpatient Hospitalization: No Clear for Discharge: Adequate Clinical Respons Discharge Planning - Discharge Planning Outpatient Program: [facility] Recommendations for Continuing Care: Medication Management Medications: Current Medications Acetaminophen (Tylenol Tab*) 650 mg PO Q4H PRN PRN Reason: for pain; or Temp >101 F Al Hydrox/Mg Hydrox/Simethicone (Maalox Plus*) 30 ml PO Q4H PRN PRN Reason: INDIGESTION Last Admin: 04/15/19 09:30 Dose: 30 ml Clozapine (Clozapine Tab*) 250 mg PO BEDTIME [facility] Last Admin: 04/15/19 20:52 Dose: 250 mg Hydroxyzine HCl (Atarax Tab*) 50 mg PO Q6H PRN PRN Reason: ANXIETY Last Admin: 04/15/19 20:52 Dose: 50 mg [place] Carbonate ([place] Carbonate Er Tab*) 900 mg PO BEDTIME [facility] Last Admin: 04/15/19 20:53 Dose: 900 mg Lorazepam (Ativan Tab(*)) 1 mg PO TID [facility] Last Admin: 04/16/19 07:57 Dose: 1 mg Discharge Planning: Prescriptions provided for discharge [x] Yes [] No Follow up care details as per social work arrangements. Patient response to discharge plan: [x] eager for discharge [] agreeable with discharge plan [] ambivalent about discharge [] disagrees with discharge today
[2019-04-16 11:44] VITALS: BP 119/55
== END 2019-04-16 11:10 | disposition home or self-care (01) | DRG 753 ==
LOC: ED 09:47 → BSU 12:11
PROVIDERS: ADMIT Psychiatry & Neurology Psychiatry; ATTEND Psychiatry & Neurology Psychiatry
DX: F31.81 Bipolar II disorder (principal); R45.851 Suicidal ideations; F10.21 Alcohol dependence, in remission; Z86.718 Personal history of other venous thrombosis and embolism; Z88.0 Allergy status to penicillin
CPT/HCPCS: 36415; 80053; 80061; 80178; 80320; 80329; 83036; 84443; 85025; 99222; 99232; 99233; 99238; 99285; A9270-GY; G0480

== ENCOUNTER 2019-04-23 14:06 | Emergency (ER) | payer OTHER ==
[2019-04-23 14:34] VITALS: BP 105/69
--- NOTE | 2019-04-23 16:06 | UC ---
Ear Complaint HPI - HPI Summary HPI Summary: 49-year-old female comes in with a chief complaint of decreased hearing in the left ear. Patient has a long-standing history of hearing loss in the right ear since she does not hear at all in the right ear. She has had some sinusitis symptoms going on for greater than 10 days. This morning she noticed that the hearing her left ear decrease significantly. No known trauma. No fevers or chills. She has been using Afrin nasal spray on a regular basis. - History of Current Complaint Chief Complaint: UCEar Stated Complaint: EAR PAIN Time Seen by Provider: 04/23/19 15:14 Hx Last Menstrual Period: hyster Pain Intensity: 8 - Allergies/Home Medications Allergies/Adverse Reactions: Allergies Allergy/AdvReac Type Severity Reaction Status Date / Time Penicillins Allergy Hives Verified 04/23/19 14:33 Sulfa (Sulfonamide Allergy Hives Verified 04/23/19 14:33 Antibiotics) PMH/Surg Hx/FS Hx/Imm Hx Previously Healthy: Yes Psychological History: Bipolar Disorder - Surgical History Surgical History: Yes Surgery Procedure, Year, and Place: varicose vein [id number]. breast reduction x 25 yrs AGO. HYSTERECTOMY 03/2014-[place]. hernia repair,. appendectomy - Family History Known Family History: Positive: Hypertension, Non-Contributory - Social History Alcohol Use: None Alcohol Amount: 6 DRINKS PER WEEK- PATIENT STATES IS IN THE PROCESS OF QUITTING Substance Use Type: None Smoking Status (MU): Former Smoker Amount Used/How Often: OFF AND ON SOCIALLY 20 YEARS When Did the Patient Quit Smoking/Using Tobacco: 10 YEARS AGO - Immunization History Most Recent Influenza Vaccination: 2012 Most Recent Tetanus Shot: Unsure Most Recent Pneumonia Vaccination: Never Review of Systems All Other Systems Reviewed And Are Negative: Yes Constitutional: Positive: Negative Skin: Positive: Negative Eyes: Positive: Negative ENT: Positive: Nasal Discharge, Sinus Congestion, Other - see hpi Respiratory: Positive: Negative Cardiovascular: Positive: Negative Gastrointestinal: Positive: Negative Motor: Positive: Negative Neurovascular: Positive: Negative Musculoskeletal: Positive: Negative Neurological: Positive: Negative Psychological: Positive: Negative Is Patient Immunocompromised?: No Physical Exam Triage Information Reviewed: Yes Appearance: Well-Appearing, No Pain Distress, Well-Nourished Vital Signs: Initial Vital Signs Temp 98.6 F 04/23/19 14:29 Pulse 87 04/23/19 14:29 Resp 18 04/23/19 14:29 BP 105/69 04/23/19 14:29 Pulse Ox 98 04/23/19 14:29 Vital Signs Reviewed: Yes Eye Exam: Normal Eyes: Positive: Conjunctiva Clear ENT: Positive: Pharynx normal, Other - B/L cerumen impaction. Neck: Positive: Supple Respiratory: Positive: Lungs clear, Normal breath sounds, No respiratory distress Cardiovascular: Positive: RRR Musculoskeletal Exam: Normal Musculoskeletal: Positive: Strength Intact, ROM Intact Neurological Exam: Normal Neurological: Positive: Alert, Muscle Tone Normal Psychological Exam: Normal Psychological: Positive: Age Appropriate Behavior Skin Exam: Normal Ear Complaint Course/Dx - Course Course Of Treatment: Patient was irrigated bilaterally with good removal of cerumen. The deafness in the right ear continues. Patient reports she can hear a little bit better in the left ear. With her sinusitis symptoms and use of Afrin the plan is to treat with doxycycline and I told her to stop the Afrin and use Flonase instead. Also with her history of right ear deafness and then a concern of the left ear getting worse patient's have a referral to ENT. - Differential Dx/Diagnosis Provider Diagnosis: Sinusitis, Decreased hearing of both ears, Impacted cerumen of both ears Discharge - Sign-Out/Discharge Documenting (check all that apply): Patient Departure All imaging exams completed and their final reports reviewed: No Studies - Discharge Plan Condition: Stable Disposition: HOME Prescriptions: DOXYcycline CAP(*) [DOXYcycline 100MG CAP(*)] 100 mg PO BID #20 cap Fluticasone NASAL SPRAY 50MCG* [Flonase NASAL SPRAY 50MCG*] 2 spray BOTH NARES DAILY #1 btl Patient Education Materials: Sinusitis (ED), Cerumen Impaction (ED), Hearing Loss (ED) Referrals: Austin Brenner MD [Primary Care Provider] - Enmanuel Pedraza MD [Medical Doctor] - Additional Instructions: FOLLOW UP WITH ENT. GET RECHECKED SOONER IF YOUR CONDITION WORSENS OR ANY QUESTIONS OR CONCERNS. - Billing Disposition and Condition Condition: STABLE Disposition: Home
== END 2019-04-23 16:30 | disposition home or self-care (01) ==
LOC: UCEAST 14:06
DX: J32.9 Chronic sinusitis, unspecified (principal); H91.93 Unspecified hearing loss, bilateral; H61.23 Impacted cerumen, bilateral; F31.9 Bipolar disorder, unspecified; Z87.891 Personal history of nicotine dependence; Z88.0 Allergy status to penicillin; Z88.2 Allergy status to sulfonamides
CPT/HCPCS: 99213; G0463

== ENCOUNTER → 2019-05-24 17:09 | Emergency (ER) | payer OTHER ==
[2019-05-24 17:20] VITALS: BP 122/79
--- OUTSIDE RECORDS SUMMARY | 2019-05-24 17:25 | XMS REPORT | Continuity of Care Document ---
:1970 External Reference #:[id number] Author Name Rey Zurita MD Address [address] [place] [address] Care Team Providers Name Role Phone Austin Brenner M.D. Primary Care Physician Unavailable Payers Date Identification Numbers Payment Provider Subscriber Policy Number: [id number] [facility] Bita Blancas PayID: [id number] [address] [address] [place] [address] Problems Active Problems Provider Date Impacted cerumen Rey Zurita MD Onset: 05/10/2019 Sensorineural hearing loss Rey Zurita MD Onset: 05/10/2019 Family History Date Family Member(s) Observation Comments General Allergies General Asthma General Hearing Loss Social History Type Date Description Comments Sex Unknown Occupation Disabled Tobacco Use Start: Unknown End: Former Occasional Smoker Quit age 48 Unknown Tobacco Use Start: Unknown Never Smoked Cigars Tobacco Use Start: Unknown Never Smoked A Pipe Smokeless Tobacco Never Used Smokeless Tobacco ETOH Use Denies alcohol use Allergies, Adverse Reactions, Alerts Active Allergies Reaction Severity Comments Date sulfa 05/10/2019 Penicillin 05/10/2019 Medications Active Medications SIG Qnty Indications Ordering Provider Date Clozapine Unknown 100mg Tablets [place] Carbonate ER Unknown 300mg Tablets ER Lorazepam Unknown 1mg Tablets Hydroxyzine HCL Take 1 Tablet By Unknown 50mg Mouth Every Day Tablets Vital Signs Date Vital Result Comment 05/10/2019 11:11am Weight 156.00 lb Weight 70.762 kg Height 66 inches 5'6" Height in cm's 167.6 cm BMI (Body Mass Index) 25.2 kg/m2 Procedures Date Code Description Status 05/10/2019 92052 Removal Wax Impaction Completed Encounters Type Date Location Provider Dx Diagnosis Office Visit 05/10/2019 [facility] Rey Zurita H90.5 Unspecified 11:00a 10/30/07 sensorineural hearing loss H61.23 Impacted cerumen, bilateral Plan of Treatment Future Appointment(s):05/30/2019 1:45 pm - Rey Zurita MD at [facility] 1:15 pm - Ravindra Agarwal MA, CCC-A at [facility] - Rey Zurita MDH90.5 Unspecified sensorineural hearing lossH61.23 Impacted cerumen, bilateralComments:The patient's cerumen impaction was cleaned without difficulty. she has been scheduled for hearing evaluation, she may require further investigations including possible MRI
--- OUTSIDE RECORDS SUMMARY | 2019-05-24 17:25 | XMS REPORT | Continuity of Care Document ---
:1970 External Reference #:[id number] Author Name Tristan Brenner M.D. Address [address] [facility] [place] [address] Care Team Providers Name Role Phone Tristan Brenner MD Care Team Information Home Office Representative Unavailable Tristan Brenner MD Primary Care Physician Unavailable Payers Date Identification Numbers Payment Provider Subscriber Effective: 2018 Policy Number: [id number] [facility] Alyse Blancas PayID: [id number] [address] [place] [id number] Problems Active Problems Provider Date Hypercoagulability state Tristan Brenner M.D. Onset: 05/22/2018 Mixed bipolar affective disorder, mild Tristan Brenner M.D. Onset: 2017 Chronic alcoholism in remission Tristan Brenner M.D. Onset: 11/27/2018 Malaise Tristan Brenner M.D. Onset: 05/21/2019 Inactive Problems Diarrhea Tristan Brenner M.D. Onset: 05/29/2018 Inactive: 05/22/2019 Nausea and vomiting Tristan Brenner M.D. Onset: 08/28/2018 Inactive: 05/22/2019 Dyspnea Tristan Brenner M.D. Onset: 05/22/2018 Inactive: 05/22/2019 Social History Type Date Description Comments Sex Unknown Lives With Alone Lives With Negative For Sons 2 estranged sons secondary to alcohol use Tobacco Use Start: Unknown Denies Tobacco Use ETOH Use Denies alcohol use in recovery, attends AA. bid Recreational Drug Use Denies Drug Use Tobacco Use Start: Unknown End: Patient is a former Unknown smoker Smoking Status Reviewed: 12/25/18 Patient is a former smoker Exercise Type/Frequency Exercises rarely Free Text [id number] Allergies, Adverse Reactions, Alerts Active Allergies Reaction Severity Comments Date Penicillin 05/01/2018 Sulfa 05/01/2018 Medications Active Medications SIG Qnty Indications Ordering Date Provider Proair HFA inhale 2 puffs by 8.5units Tristan Sims 08/28/2018 mouth every 4 Rosemarie Brenner 108(90Base) mcg/Act hours Aerosol Ondansetron dissolve 1 tab 15tabs Tristan FEmilio 08/28/2018 4mg under tongue four Rosemarie Brenner Tablets Dispers times a day hours as needed nausea [place] Carbonate 900 mg daily Tristan FEmilio Rosemarie Brenner Capsules Ativan Tristancarolina Sims Tablets Rosemarie Brenner Clozapine 300 mg daily Tristan FEmilio 200mg Rosemarie Brenner Tablets Dispers Hydroxyzine HCL one tablet two Unknown 50mg times a day as Tablets needed. History Medications Prednisone take 2 by mouth 6tabs J20.9 Vanessa Thompson 12/25/2018 - 20mg as one dose CRISTI [place] 05/21/2019 Tablets daily until gone Benzonatate take one by 30caps J20.9 Vanessa Thompson 12/25/2018 - 200mg mouth 3 times CRISTI [place] 05/21/2019 Capsules daily as needed for cough Lamotrigine 1 by mouth every Tristan FEmilio Brenner, 08/28/2018 - 100mg day M.D. 11/27/2018 Tablets Xarelto 1 by mouth daily 90tabs I82.402 Tristan AndrewEmilio Brenner, 05/01/2018 - 20mg M.D. 05/21/2019 Tablets Debrox use as directed 1units H61.21 Tristan F. Jordin, 05/01/2018 - 6.5% for ear wax M.D. 05/21/2019 Solution Sertraline HCL 1 by mouth every Tristan F. Jordin, - day M.D. 08/28/2018 Tablets Vital Signs Date Vital Result Comment 05/21/2019 2:22pm BP Systolic 100 mmHg BP Diastolic 66 mmHg Heart Rate 68 /min Body Temperature 99.3 F Respiratory Rate 16 /min Height 66 inches 5'6" Weight 155.00 lb BMI (Body Mass Index) 25.0 kg/m2 12/25/2018 10:08am BP Systolic 112 mmHg BP Diastolic 70 mmHg Heart Rate 83 /min Body Temperature 98.1 F Respiratory Rate 16 /min O2 % BldC Oximetry 98 % Height 66 inches 5'6" Weight 168.00 lb BMI (Body Mass Index) 27.1 kg/m2 11/27/2018 6:43pm BP Systolic 118 mmHg BP Diastolic 70 mmHg Heart Rate 76 /min Body Temperature 98.4 F Respiratory Rate 20 /min Weight 171.00 lb 08/28/2018 4:47pm BP Systolic 98 mmHg BP Diastolic 60 mmHg Heart Rate 48 /min Body Temperature 97.8 F Height 66.25 inches 5'6.25" Weight 175.38 lb BMI (Body Mass Index) 28.1 kg/m2 05/29/2018 12:05pm BP Systolic 102 mmHg BP Diastolic 60 mmHg Heart Rate 68 /min Body Temperature 98.4 F Respiratory Rate 18 /min Height 66.25 inches 5'6.25" 05/22/2018 11:23am BP Systolic 100 mmHg BP Diastolic 72 mmHg Heart Rate 72 /min Body Temperature 97.9 F Respiratory Rate 18 /min O2 % BldC Oximetry 96 % Height 66.25 inches 5'6.25" 05/01/2018 10:48am BP Systolic 98 mmHg BP Diastolic 62 mmHg Heart Rate 72 /min Body Temperature 98.6 F Height 66.25 inches 5'6.25" Weight 171.00 lb BMI (Body Mass Index) 27.4 kg/m2 Results Test Date Facility Test Result H/L Range Note Laboratory test 05/21/2019 [facility]oem([facility]) Free T4 <pending> 0.75- 1.54 finding TSH <pending> 0.5-5.0 CBC Electronic (a New) 05/21/2019 [facility] WBC 7.16 4.0-10.0 (607)- - RBC 5.20 3.93-6.0 Hemoglobin (Fma/CMC/CTX) 13.9 g/dL 12.0-17.0 Hematocrit (Fma/CMC/CTX) 42.5 % 35.0-50.0 Mean Corpuscular Vol 81.7 fL 80-95 Mean Corpuscular Hemoglobin 26.7 pg 25.6-32.2 Mean Corpuscular Hemo Concen 32.7 g/dL 32.2-36.0 Platelets 278 10^3/ul 163-400 RDW-CV 13.0 11.6-14.4 Mean Platelet Volume 10.2 fL 8.0-12.4 Absolute Neutrophils BLD 5.36 1.56-6.13 Absolute Lymphocytes 1.52 1.18-3.74 Absolute Monocytes BLD Auto 0.25 0.24-0.82 Absolute Eos Blood 0.00 Low 0.04-0.54 Absolute Basophils 0.02 0.01-0.08 Neutrophil % 74.9 % High 34.0-70.0 Lymph% 21.2 % 20.0-52.0 Monocytes % 3.5 % Low 5.0-12.0 Eos % 0.0 % Low 0.7-7.0 Basophil% 0.3 % 0-1.2 Ua - Non Micro (Fma) 05/21/2019 [facility] Appearance Clear (607)- - Color Yellow Glucose, Urine ([facility]ma/[place]/CTX) Negative Bilirubin Negative Ketones Negative SP Grav 1.020 Blood Negative PH 7.0 Protein Negative Urobil 0.2 Nitrite Negative Leukocytes (a/[place]/[facility]rex) Negative Laboratory test finding 05/21/2019 [facility] C Reactive Protein 14.58 mg/L High <8.01 1 [place] 0.60 mmol/L N 0.6-1.2 2 CBC Auto Diff 04/12/2019 [facility] White Blood Count 7.5 10^3/uL N 3.5-10.8 Red Blood Count 5.19 10^6/uL High 3.70-4.87 Hemoglobin 14.0 g/dL N 12.0-16.0 Hematocrit 43 % N 35-47 Mean Corpuscular Volume 82 fL N 80-97 Mean Corpuscular Hemoglobin 27 pg N 27-31 Mean Corpuscular HGB Conc 33 g/dL N 31-36 Red Cell Distribution Width 14 % N 10-15 Platelet Count 270 10^3/uL N 150-450 Mean Platelet Volume 8.9 fL N 7.4-10.4 Abs Neutrophils 6.1 10^3/uL N 1.5-7.7 Abs Lymphocytes 1.1 10^3/uL N 1.0-4.8 Abs Monocytes 0.3 10^3/uL N 0-0.8 Abs Eosinophils 0.0 10^3/uL N 0-0.6 Abs Basophils 0.0 10^3/uL N 0-0.2 Abs Nucleated RBC 0.0 10^3/uL Granulocyte % 81.3 % Lymphocyte % 14.5 % Monocyte % 3.8 % Eosinophil % 0.0 % Basophil % 0.4 % Nucleated Red Blood Cells % 0.1 Comp Metabolic Panel 04/12/2019 [facility] Sodium 141 mmol/L N 135-145 Potassium 4.1 mmol/L N 3.5-5.0 Chloride 111 mmol/L N 101-111 Co2 Carbon Dioxide 26 mmol/L N 22-32 Anion Gap 4 mmol/L N 2-11 Glucose 101 mg/dL High 70-100 Blood Urea Nitrogen 10 mg/dL N 6-24 Creatinine 0.63 mg/dL N 0.51-0.95 BUN/Creatinine Ratio 15.9 N 8-20 Calcium 9.9 mg/dL N 8.6-10.3 Total Protein 7.1 g/dL N 6.4-8.9 Albumin 4.2 g/dL N 3.2-5.2 Globulin 2.9 g/dL N 2-4 Albumin/Globulin Ratio 1.4 N 1-3 Total Bilirubin 0.40 mg/dL N 0.2-1.0 Alkaline Phosphatase 61 U/L N 34-104 Alt 17 U/L N 7-52 Ast 15 U/L N 13-39 Egfr Non- 100.4 >60 Egfr 121.5 >60 3 Laboratory test finding 04/12/2019 [facility] [place] 0.86 mmol/L N 0.6-1.2 Acetaminophen < 15 g/mL 4 Alcohol < 10 mg/dL N <10 Salicylate < 2.50 mg/dL <30 TSH (Thyroid Stim Horm) 1.15 mcIU/mL N 0.34-5.60 Laboratory test 03/28/2019 [facility] Surgical Pathology SEE RESULT 5 finding BELOW Laboratory test 10/09/2018 [place] D Dimer Quantitative < 200 ng/mL N Less Than 6 finding 230 Comp Metabolic 10/09/2018 [facility] Sodium 141 mmol/L N 135-145 Panel Potassium 4.2 mmol/L N 3.5-5.0 Chloride 110 mmol/L N 101-111 Co2 Carbon Dioxide 25 mmol/L N 22-32 Anion Gap 6 mmol/L N 2-11 Glucose 108 mg/dL High 70-100 Blood Urea Nitrogen 9 mg/dL N 6-24 Creatinine 0.73 mg/dL N 0.51-0.95 BUN/Creatinine Ratio 12.3 N 8-20 Calcium 9.9 mg/dL N 8.6-10.3 Total Protein 6.7 g/dL N 6.4-8.9 Albumin 4.4 g/dL N 3.2-5.2 Globulin 2.3 g/dL N 2-4 Albumin/Globulin Ratio 1.9 N 1-3 Total Bilirubin 0.40 mg/dL N 0.2-1.0 Alkaline Phosphatase 58 U/L N 34-104 Alt 19 U/L N 7-52 Ast 17 U/L N 13-39 Egfr Non- 84.7 >60 Egfr 102.5 >60 7 Lipid Profile (Trig/Chol/HDL) 10/09/2018 [facility] Triglycerides 413 mg/dL 8 Cholesterol 209 mg/dL 9 HDL Cholesterol 40.8 mg/dL 10 LDL Cholesterol (SEE NOTE) mg/dL 11 Laboratory test finding 10/09/2018 [facility] Creatine Kinase(CK) 40 U/L N 10- 223 12 LDL Cholesterol Direct 105 mg/dL 13 Laboratory test finding 08/28/2018 [facility] [place] 0.92 mmol/L N 0.6-1.2 14 CBC Electronic (a New) 08/28/2018 [facility] WBC 5.80 4.0-10.0 (607)- - RBC 5.11 3.93-6.0 Hemoglobin (Fma/CMC/CTX) 13.9 g/dL 12.0-17.0 Hematocrit (Fma/CMC/CTX) 42.7 % 35.0-50.0 Mean Corpuscular Vol 83.6 fL 80-95 Mean Corpuscular Hemoglobin 27.2 pg 25.6-32.2 Mean Corpuscular Hemo Concen 32.6 g/dL 32.2-36.0 Platelets 325 10^3/ul 163-400 RDW-CV 12.8 11.6-14.4 Mean Platelet Volume 10.4 fL 8.0-12.4 Absolute Neutrophils BLD 3.46 1.56-6.13 Absolute Lymphocytes 2.13 1.18-3.74 Absolute Monocytes BLD Auto 0.18 Low 0.24-0.82 Absolute Eos Blood 0.00 Low 0.04-0.54 Absolute Basophils 0.02 0.01-0.08 Neutrophil % 59.7 % 34.0-70.0 Lymph% 36.7 % 20.0-52.0 Monocytes % 3.1 % Low 5.0-12.0 Eos % 0.0 % Low 0.7-7.0 Basophil% 0.3 % 0-1.2 Laboratory test finding 08/28/2018 [facility]ma) TSH 3.12 mIU/L 0.50-6.00 Free T4 0.98 ng/dL 0.75-1.54 LDL, Direct 151 mg/dL High 0-130 Lipid Profile 08/28/2018 [facility]) Cholesterol 250 mg/dL High 120-200 Triglycerides 396 mg/dL High 30-200 HDL Cholesterol 42 mg/dL 30-85 LDL (Calculated) 129 CALC 0-129 VLDL Cholesterol 79 mg/dL High 0-50 HDL Risk Factor 6.0 CALC High 0.0-4.4 Comprehensive Metabolic 08/28/2018 [facility]ma) Sodium 138 mEq/L 134-149 Prof Potassium 4.2 mEq/L 3.6-5.5 Chloride 106 mEq/L 94-112 Carbon Dioxide 22 mEq/L 21-32 Glucose 96 mg/dL 70-105 BUN 7 mg/dL 6-26 Creatinine 0.8 mg/dL 0.6-1.4 BUN/Creat Ratio 8.8 CALC 8.0-36.0 Calcium 10.0 mg/dL 8.6-10.2 Total Protein 7.3 g/dL 6.4-8.3 Albumin 4.9 g/dL 3.8-5.5 Globulin 2.4 g/dL 2.0-4.8 A/G Ratio 2.0 CALC 0.6-2.3 Alk. Phosphatase 54 U/L 30-110 Alt (SGPT) 14 U/L 7-35 Ast (Sgot) 13 U/L 5-34 Total Bilirubin 0.3 mg/dL 0.2-1.3 GFR Non- >60 ml/min/1.73m^ >=60 GFR >60 ml/min/1.73m^ >=60 Laboratory test finding 08/07/2018 [facility] Folic Acid (Folate) 14.19 ng/mL > 3.99 Vitamin B12 382 pg/mL N 180-914 15 O&P: Giardia/Cryptospor Screen SEE RESULT BELOW 16 Stool Culture SEE RESULT BELOW 17 Immunoglobulin A 179 mg/dL 61 - 356 18 Transglutaminase Igg & Iga 08/07/2018 [facility] Tissue Transglutaminase <1.2 U/ mL 19 IgA Ab Tissue Transglutaminase IgG Ab <1.2 U/mL 20 Laboratory test 05/30/2018 [facility] [place] 0.69 mmol/L N 0.6-1.2 21, 22 finding Laboratory test 05/29/2018 [facility](fma) Free T4 0.60 ng/dL Low 0.75-1.54 23 finding CBC Electronic 05/29/2018 [facility](fma) WBC 6.1 x10^3/UL 4.0-10.0 Fma RBC 5.04 x10^6/UL 3.93-6.00 HGB 13.7 g/dL 12.0-17.0 HCT 42 % 35-50 MCV 83.3 fL 80.0-95.0 MCH 27.2 pg 25.6-32.2 MCHC 32.6 g/dL 32.2-36.0 RDW-CV 13.7 % 11.6-14.4 PLT 324 x10^3/UL 163-400 MPV 10.9 fL 9.4-12.4 Rene# 4.60 x10^3/UL 1.56-6.13 Lymph# 1.31 x10^3/UL 1.18-3.74 [place]# 0.14 x10^3/UL Low 0.24-0.82 24 Eos # 0.0 x10^3/UL 0.0-0.5 Baso # 0.02 x10^3/UL 0.01-0.08 Rene% 75.6 % High 34.0-70.0 25 Lymph % 21.5 % 20.0-52.0 [place]% 2.3 % Low 5.0-12.0 26 Eos% 0.0 % Low 0.7-7.0 27 Baso% 0.3 % 0.1-1.2 Laboratory test finding 05/29/2018 [facility](fma) TSH 1.58 mIU/L 0.50-6.00 Comprehensive Metabolic 05/29/2018 [facility](fma) Sodium 139 mEq/L 134-149 Prof Potassium 3.8 mEq/L 3.6-5.5 Chloride 108 mEq/L 94-112 Carbon Dioxide 23 mEq/L 21-32 Glucose 106 mg/dL High 70-105 BUN 8 mg/dL 6-26 Creatinine 0.7 mg/dL 0.6-1.4 BUN/Creat Ratio 11.4 CALC 8.0-36.0 Calcium 9.6 mg/dL 8.6-10.2 Total Protein 7.6 g/dL 6.4-8.3 Albumin 4.6 g/dL 3.8-5.5 Globulin 3.0 g/dL 2.0-4.8 A/G Ratio 1.5 CALC 0.6-2.3 Alk. Phosphatase 55 U/L 30-110 Alt (SGPT) 22 U/L 7-35 Ast (Sgot) 16 U/L 5-34 Total Bilirubin 0.2 mg/dL 0.2-1.3 GFR Non- >60 ml/min/1.73m^ >=60 GFR >60 ml/min/1.73m^ >=60 1 1 pour off with serum [id number] 1 pour off with serum [id number] 3 Because ethnic data is not always readily available, this report includes an eGFR for both -Americans and non- Americans. The National Kidney Disease Education Program (NKDEP) does not endorse the use of the MDRD equation for patients that are not between the ages of 18 and 70, are , have extremes of body size, muscle mass, or nutritional status, or are non- or non-. According to the National Kidney Foundation, irrespective of diagnosis, the stage of the disease is based on the level of kidney function: Stage Description GFR(mL/min/1.73 m(2)) 1 Kidney damage with normal or decreased GFR 90 2 Kidney damage with mild decrease in GFR 60-89 3 Moderate decrease in GFR 30-59 4 Severe decrease in GFR 15-29 5 Kidney failure <15 (or dialysis) 4 Therapeutic concentration: <50 ug/mL Toxic concentration: >120 ug/mL 5 SEE RESULT BELOW Name: STEPHANIE BLANCAS : [address]: Maik Arias DO Acct: [id number] Unit: [id number] AGE: 48 Location: ENDO Re03/28/19 SEX: F Status: DEP REF SPEC: [id number] REDDY: 03/28/19-1125 [facility] DR: Maik Arias DO REQ: [id number] RECD: 03/28/19-153 STATUS: GRACIELA DUMONT DR: Tristan Brenner MD _ ORDERED: LEVEL 4 FINAL DIAGNOSIS Colon, random, biopsy: -- Benign colonic mucosa with no significant pathologic abnormalities. -- No evidence of microscopic colitis. CLINICAL HISTORY Diarrhea PRE-OPERATIVE DIAGNOSIS Rule out microscopic colitis POST-OPERATIVE DIAGNOSIS Colonoscopy: to terminal ileum; good prep; normal GROSS DESCRIPTION The specimen is received in formalin labeled, Random Colon Biopsies, and consists of a 1.0 by up to 0.5 x 0.1 cm aggregate of butcher-pink irregular soft tissue fragments which is submitted entirely in one cassette. Signed by and Reported on: Sarah Arthur MD 03/29/19 0266 END OF REPORT DEPARTMENT OF PATHOLOGY, [address] [place] [address] Donell Christianson M.D. Director [facility] # [id number] 6 Please note: The following may produce a false positive D Dimer test: - Rheumatoid factor greater than 60 IU/ml - Plasma hemoglobin greater than 0.05 gm/dl - Bilirubin greater than 50 mg/dl - Lipids greater than 1000 mg/dl - FDP greater than 20 ug/ml 7 Because ethnic data is not always readily available, this report includes an eGFR for both -Americans and non- Americans. The National Kidney Disease Education Program (NKDEP) does not endorse the use of the MDRD equation for patients that are not between the ages of 18 and 70, are , have extremes of body size, muscle mass, or nutritional status, or are non- or non-. According to the National Kidney Foundation, irrespective of diagnosis, the stage of the disease is based on the level of kidney function: Stage Description GFR(mL/min/1.73 m(2)) 1 Kidney damage with normal or decreased GFR 90 2 Kidney damage with mild decrease in GFR 60-89 3 Moderate decrease in GFR 30-59 4 Severe decrease in GFR 15-29 5 Kidney failure <15 (or dialysis) 8 Desirable: <150 Borderline High: 150-199 High: 200-499 Very High: >500 9 Desirable: <200 Borderline High: 200-239 High: >239 10 Low: <40 Desirable: 40-60 High: >60 11 Unable to calculate LDL as triglyceride is > 400 12 FASTING Copy Result to: TRISTAN BRENNER ([id number]) 13 Desirable: <100 Near Optimal: 100-129 Borderline High: 130-159 High: 160-189 Very High: >189 14 [id number] 1 pour off tube with serum from rtt 15 Normal Range 180 to 914 Indeterminate Range 145 to 180 Deficient Range <145 16 SEE RESULT BELOW Name: GERSONSTEPHANIE : [address]: Maik Arias DO Acct: [id number] Unit: [id number] AGE: 48 Location: LAB Re08/07/18 SEX: F Status: REG REF SPEC: [id number] REDDY: 08/06/[address]: Maik Arias DO REQ: [id number] RECD: 08/07/18-1151 STATUS: RES [facility] DR: Tristan Brenner MD _ SOURCE: STOOL SPDESC: ORDERED: Stool Culture, O P: Giar/Crypt COMMENTS: Verbal to JUWAN IN LAB by [id number] at 1206 on 08/07/18. Results read back accurately. Procedure Result Reported Site Stool Culture PENDING Shiga Toxin 1 2 PENDING O P: Giardia/Cryptospor Screen Final 08/07/18- 1357 ML Organism 1 Neg Cryptosporidium/Giardia Giardia and cryptosporidium antigen testing performed by enzyme immunoassay. If patient is immunocompromised or has traveled to or is from a developing country, a full ova and parasite exam with microscopic (OPMIC) is recommended. All samples will be held one month in case full ova and parasite testing is requested. Contact the Microbiology Department at [phone]. TEST LIMITATIONS: As with all diagnostic procedures, the results obtained should be used in conjunction with other clinical information available the physician, including confirmation by another method. Negative results can occur in samples containing antigen below lower limits of detection of the assay. One negative specimen does not rule out the possibility of a parasitic infection. To improve detection it is recommended that three specimens be collected on separate days over a period of not more than seven days. The use of colonic washes, aspirates or other diluted sample types has not been established and could affect the performance of the assay. Stool samples contaminated with an CONTINUED ON NEXT PAGE DEPARTMENT OF PATHOLOGY, [address] [place] [address] Donell Christianson M.D. Director [facility] # [id number] Patient: STEPHANIE BLANCAS [id number] (Continued) Specimen: [id number] Collected: 08/06/18-1700 Received: 08/07/18-1150 (Continued) Procedure Result Reported Site O P: Giardia/Cryptospor Screen Final (continued) 08/07/181356 oily or particulate base (eg. Barium, mineral oil etc.) could interfere with the test and are not recommended. * ML - Main Lab . END OF REPORT DEPARTMENT OF PATHOLOGY, [address] [place] [address] Donell Christianson M.D. Director [facility] # [id number] 17 SEE RESULT BELOW Name: STEPHANIE BLANCAS : [address]: Maik Arias DO Acct: [id number] Unit: [id number] AGE: 48 Location: LAB Re08/07/18 SEX: F Status: REG REF SPEC: [id number] REDDY: 08/06/[address]: Maik Arias DO REQ: [id number] RECD: 08/07/18 STATUS: SHERYL DUMONT DR: Tristan Brenner MD _ SOURCE: STOOL SPDESC: ORDERED: Stool Culture, O P: Giar/Crypt COMMENTS: Verbal to JUWAN IN LAB by [id number] at 1206 on 08/07/18. Results read back accurately. Procedure Result Reported Site Stool Culture Final 08/09/18- 1257 ML Organism 1 AEROMONAS HYDROPHILA/CAVIAE Result No additional pathogens isolated Testing for Salmonella, Shigella, Aeromonas, Plesiomonas, Yersinia and Campylobacter are included in a Stool Culture. Vibrio spp not routinely tested for in a stool culture. If testing is desired, please request specifically when placing test order. Sensitivities not routinely performed on stool isolates, as antibiotics may prolong the carriage rate of bacteria. Please contact the microbiology lab if sensitivities are required. * This is a Corrected result. * A prior result that was reported as final has been changed. Report corrected on: 08/09/18 1257 Shiga Toxin 1 2 Final 08/08/18- 1225 ML Organism 1 Negative Shiga Toxin 1 2 CONTINUED ON NEXT PAGE DEPARTMENT OF PATHOLOGY, [address] [place] [address] Donell Christianson M.D. Director [facility] # [id number] Patient: GERSONSTEPHANIE [id number] (Continued) Specimen: [id number] Collected: 08/06/18-170 Received: 08/07/18-115 (Continued) Procedure Result Reported Site Shiga Toxin 1 2 Final (continued) 08/08/18- 1225 Immunochromatographic Assay O P: Giardia/Cryptospor Screen Final 08/07/18- 1357 ML Organism 1 Neg Cryptosporidium/Giardia Giardia and cryptosporidium antigen testing performed by enzyme immunoassay. If patient is immunocompromised or has traveled to or is from a developing country, a full ova and parasite exam with microscopic (OPMIC) is recommended. All samples will be held one month in case full ova and parasite testing is requested. Contact the Microbiology Department at [phone]. TEST LIMITATIONS: As with all diagnostic procedures, the results obtained should be used in conjunction with other clinical information available the physician, including confirmation by another method. Negative results can occur in samples containing antigen below lower limits of detection of the assay. One negative specimen does not rule out the possibility of a parasitic infection. To improve detection it is recommended that three specimens be collected on separate days over a period of not more than seven days. The use of colonic washes, aspirates or other diluted sample types has not been established and could affect the performance of the assay. Stool samples contaminated with an oily or particulate base (eg. Barium, mineral oil etc.) could interfere with the test and are not recommended. * - Main Lab . END OF REPORT DEPARTMENT OF PATHOLOGY, [address] [place] [address] Donell Christianson M.D. Director [facility] # [id number] 18 Test Performed by: [facility] [address] [place] [address] 19 REFERENCE VALUE <4.0 (Negative) 20 REFERENCE VALUE <6.0 (Negative) Test Performed by: [facility] - [address] [address] 21 [id number] 23 RESULTS VERIFIED BY REPEAT ANALYSIS 24 RESULTS VERIFIED BY REPEAT ANALYSIS 25 RESULTS VERIFIED BY REPEAT ANALYSIS 26 RESULTS VERIFIED BY REPEAT ANALYSIS 27 RESULTS VERIFIED BY REPEAT ANALYSIS Procedures Date Code Description Status 03/28/2019 [id number] Colonoscopy Completed 12/25/2018 67501 Pulse Oximetry Completed 07/05/2018 13934659 Mammogram Completed 05/22/2018 74416 Pulse Oximetry Completed 05/22/2018 06097 Electrocardiogram Complete Completed 05/01/2018 98709 Remove Impact Cerumen Irrigati Completed Encounters Type Date Location Provider Dx Diagnosis Office Visit 12/25/2018 Main Office Vanessa Thompson J20.9 Acute bronchitis, 10:00a CRISTI [place] unspecified Office Visit 11/27/2018 Main Office Tristan Brenner, 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 unspecified D68.59 Other primary thrombophilia R11.2 Nausea with vomiting, unspecified F31.61 Bipolar disorder, current episode mixed, mild E78.1 Pure hyperglyceridemia R06.02 Shortness of breath Office Visit 05/29/2018 10:40a Main Office Tristan Sims D68.59 Other primary Rosemarie Brenner thrombophilia R19.7 Diarrhea, unspecified F31.61 Bipolar disorder, current episode mixed, mild Office Visit 05/22/2018 11:30a Main Office Tristan Brenner, R06.02 Shortness of M.D. breath D68.59 Other primary thrombophilia Office Visit 05/01/2018 10:45a Main Office Sarah Murphy, I82.402 Acute embolism [facility] and [facility] unsp deep veins of l low extrem K58.0 Irritable bowel syndrome with diarrhea F10.21 Alcohol dependence, in remission H93.11 Tinnitus, right ear H91.91 Unspecified hearing loss, right ear H61.21 Impacted cerumen, right ear Plan of Treatment Future Appointment(s):06/25/2019 6:50 pm - Tristan Brenner M.D. at Main Raqczk7305/21/2019 - Tristan Brenner M.D.D68.59 Other primary [id number] Bipolar disorder, current episode mixed, mildR53.81 Other malaiseComments:The patient was instructed to call or return to the office if there was no improvement .AllComments:Medication Management Patient Understands medications she's taking? Yes No Are there Barriers to Adherence? Yes No Has the patient been asked about herbal supplements and therapies, and OTC meds? Yes No Patient had a recent hospitalization for depression. He now seeing Dr. Middleton and has recently started clozapine. Patient has had malaise, increased fatigue, and weight loss over the last few months. Lab work done in March at the time of her admission was unremarkable. Recheck lab work today, check a lithium level, patient to see Dr. Kane next week. Return in 1-2 months for followup
[2019-05-24 18:28] LABS: ABS Monocytes 0.3 10^3/ul (0-0.8); ABS Neutrophils 5.2 10^3/ul (1.5-7.7); Hematocrit 42 % (35-47); Hemoglobin 14.3 g/dL (12.0-16.0); Lymphocyte % 26.7 %; Mean Corpuscular HGB Conc 34 g/dL (31-36); Mean Corpuscular Hemoglobin 28 pg (27-31); Mean Corpuscular Volume 82 fL (80-97); Mean Platelet Volume 8.7 fL (7.4-10.4); Nucleated Red Blood Cells % 0.2; Platelet Count 271 10^3/uL (150-450); Red Blood Count 5.19 10^6 /uL (3.70-4.87); Red Cell Distribution Width 13 % (10-15); White Blood Count 7.5 10^3/uL (3.5-10.8)
[2019-05-24 19:17] LABS: Albumin 4.3 g/dL (3.2-5.2); Albumin/Globulin Ratio 1.6 (1-3); BUN/Creatinine Ratio 12.7 (8-20); Calcium 9.7 mg/dL (8.6-10.3); EGFR African American 105.4 (>60); EGFR Non-African American 87.1 (>60); Globulin 2.7 g/dL (2-4); Total Bilirubin 0.4 mg/dL (0.2-1.0)
--- NOTE | 2019-05-24 19:25 | ED ---
Complex/Multi-Sys Presentation - HPI Summary HPI Summary: This pt is a 49 y/o female presenting to [facility] c/o not feeling well for the past couple of months, but more so in the past week. Pt reports she has had symptoms over a period of time. Her symptoms include palpitations characterized as transient fluttering, dizziness, lightheadedness, shakiness, nausea. Pt states she has these symptoms intermittently and sometimes are related to her anxiety. She reports her anxiety today was low but still had these symptoms. Denies abd pain. Additionally reports she has not been eating well and states the food doesn't "taste good" and does not want to eat it. She saw her PCP 3 days ago and was told she lost 20 lbs over the last 8-9 months. Pt notes her therapist suggested she comes to the ED for further evaluation. Patient and therapist spoke about how patient is not able to pinpoint why she has these symptoms. Pt has hx of DVT x4 in bilateral legs and was placed on Xarelto. Pt states she has discontinued Xarelto herself for "various reasons." She has followed up with a grill cook and has had MRI and stress test. Pt notes she has to see her PCP again to determine if she would like to continue taking Xarelto. Pt has also had a colonoscopy with her GI. - History Of Current Complaint Chief Complaint: EDGeneral Hx Obtained From: Patient Onset/Duration: Lasting Weeks, Still Present Timing: Weeks Severity Currently: Moderate Location: Negative Aggravating Factor(s): nothing Alleviating Factor(s): nothing Associated Signs And Symptoms: Positive: Dizziness, Palpitations, Nausea, Other - POSITIVE: lightheadedness, decreased appetite. Negative: Abdominal Pain - Allergies/Home Medications Allergies/Adverse Reactions: Allergies Allergy/AdvReac Type Severity Reaction Status Date / Time Penicillins Allergy Hives Verified 04/23/19 14:33 Sulfa (Sulfonamide Allergy Hives Verified 04/23/19 14:33 Antibiotics) PMH/Surg Hx/FS Hx/Imm Hx Endocrine/Hematology History: Reports: Hx Thyroid Disease - HYPOTHYROID Denies: Hx Diabetes Cardiovascular History: Reports: Hx Deep Vein Thrombosis, Hx Peripheral Vascular Disease - HAD VARICOSE VEIN SURGERY DONE BOTH LEGS, Other Cardiovascular Problems/Disorders - DVT LEFT LEG X 2 - LAST 10/2013 Denies: Hx Hypertension Respiratory History: Reports: Hx Asthma - PRN INHALER- HAS NOT NEEDED TO IN A LONG TIME Denies: Hx Chronic Obstructive Pulmonary Disease (COPD) GI History: Reports: Other GI Disorders - pt has had diarrhea for year pcp aware Denies: Hx Crohn's Disease, Hx Diverticulosis, Hx Gall Bladder Disease, Hx Gastroesophageal Reflux Disease, Hx Gastrointestinal Bleed, Hx Hiatal Hernia, Hx Irritable Bowel, Hx Jaundice, Hx Obstructive Bowel, Hx Ileostomy, Hx Pyloric Stenosis, Hx Ulcer History: Denies: Hx Dialysis, Hx Kidney Infection, Hx Kidney Stones, Hx Renal Disease , Other Problems/Disorders Sensory History: Reports: Hx Contacts or Glasses Denies: Hx Hearing Aid Opthamlomology History: Reports: Hx Contacts or Glasses Neurological History: Reports: Other Neuro Impairments/Disorders - tardive dyskineshia, vertigo Psychiatric History: Reports: Hx Anxiety - ON MEDICATION FOR, Hx Depression - ON MEDICATION FOR, Hx Bipolar Disorder - PT Denies: Hx Eating Disorder, Hx of Violent Episodes Against Others - Cancer History Hx Chemotherapy: No Hx Radiation Therapy: No - Surgical History Surgery Procedure, Year, and Place: varicose vein [id number]. breast reduction x 25 yrs AGO. HYSTERECTOMY 03/2014-[facility]. hernia repair,. appendectomy Hx Anesthesia Reactions: No - Immunization History Date of Tetanus Vaccine: unk Date of Influenza Vaccine: none Infectious Disease History: No Infectious Disease History: Denies: Hx Clostridium Difficile, Hx Hepatitis, Hx Human Immunodeficiency Virus (HIV), Hx of Known/Suspected MRSA, Hx Shingles, Hx Tuberculosis, Hx Known/ Suspected VRE, Hx Known/Suspected VRSA, History Other Infectious Disease, Traveled Outside the [place] in Last 30 Days - Family History Known Family History: Positive: Hypertension - Social History Alcohol Use: None Alcohol Amount: 6 DRINKS PER WEEK- PATIENT STATES IS IN THE PROCESS OF QUITTING Substance Use Type: Reports: None Hx Tobacco Use: Yes Smoking Status (MU): Former Smoker Amount Used/How Often: OFF AND ON SOCIALLY 20 YEARS Review of Systems Constitutional: Other - POSITIVE: shakiness, decreased appetite. Negative: Fever Positive: Palpitations Positive: Nausea. Negative: Abdominal Pain Neurological: Other - POSITIVE: dizziness, lightheadedness All Other Systems Reviewed And Are Negative: Yes Physical Exam - Summary Physical Exam Summary: Appearance: Well-appearing, Well-nourished, lying in bed comfortably Skin: Warm, dry, no obvious rash Eyes: sclera anicteric, no conjunctival pallor ENT: mucous membranes moist, pharynx appears normal Neck: Supple, nontender Respiratory: Clear to auscultation, no signs of respiratory distress Cardiovascular: Normal S1, S2. No murmurs. Normal distal pulses in tibial and radial bilaterally. Abdomen: Soft, nontender, normal active bowel sounds present Musculoskeletal: Normal, Strength/ROM Intact Neurological: A&Ox3, awake and alert, mentation is normal, speech is fluent and appropriate Psychiatric: affect is normal, does not appear anxious or depressed Triage Information Reviewed: Yes Vital Signs On Initial Exam: Initial Vitals Temp Pulse Resp BP Pulse Ox 99.0 F 86 18 122/79 98 05/24/19 17:15 05/24/19 17:15 05/24/19 17:15 05/24/19 17:15 05/24/19 17:15 Vital Signs Reviewed: Yes Diagnostics - Vital Signs Vital Signs Temp Pulse Resp BP Pulse Ox 05/24/19 17:15 99.0 F 86 18 122/79 98 - Laboratory Lab Results: Lab Results 05/24/19 05/24/19 Range/Units 18:19 18:19 WBC 7.5 (3.5-10.8) 10^3/uL RBC 5.19 H (3.70-4.87) 10^6 /uL Hgb 14.3 (12.0-16.0) g/dL Hct 42 (35-47) % MCV 82 (80-97) fL MCH 28 (27-31) pg MCHC 34 (31-36) g/dL RDW 13 (10-15) % Plt Count 271 (150-450) 10^3/uL MPV 8.7 (7.4-10.4) fL Neut % (Auto) 68.8 % Lymph % (Auto) 26.7 % [place] % (Auto) 4.0 % Eos % (Auto) 0.0 % Baso % (Auto) 0.5 % Absolute Neuts (auto) 5.2 (1.5-7.7) 10^3/ul Absolute Lymphs (auto) 2.0 (1.0-4.8) 10^3/ul Absolute Monos (auto) 0.3 (0-0.8) 10^3/ul Absolute Eos (auto) 0.0 (0-0.6) 10^3/ul Absolute Basos (auto) 0.0 (0-0.2) 10^3/ul Absolute Nucleated RBC 0.0 10^3/ul Nucleated RBC % 0.2 Sodium 141 (135-145) mmol/L Potassium 4.0 (3.5-5.0) mmol/L Chloride 109 (101-111) mmol/L Carbon Dioxide 23 (22-32) mmol/L Anion Gap 9 (2-11) mmol/L BUN 9 (6-24) mg/dL Creatinine 0.71 (0.51-0.95) mg/dL Est GFR ( Amer) 105.4 (>60) Est GFR (Non-Af Amer) 87.1 (>60) BUN/Creatinine Ratio 12.7 (8-20) Glucose 113 H (70-100) mg/dL Calcium 9.7 (8.6-10.3) mg/dL Total Bilirubin 0.40 (0.2-1.0) mg/dL AST 11 L (13-39) U/L ALT 9 (7-52) U/L Alkaline Phosphatase 61 (34-104) U/L Troponin I 0.00 (<0.04) ng/mL Total Protein 7.0 (6.4-8.9) g/dL Albumin 4.3 (3.2-5.2) g/dL Globulin 2.7 (2-4) g/dL Albumin/Globulin Ratio 1.6 (1-3) Result Diagrams: 05/24/19 18:19 05/24/19 18:19 Lab Statement: Any lab studies that have been ordered have been reviewed, and results considered in the medical decision making process. Complex Multi-Symp Course/Dx Assessment/Plan: Pt is a 49 y/o female presenting to [facility] c/o not feeling well for the past couple of months, but more so in the past week. Pt reports she has had symptoms over a period of time. Her symptoms include palpitations characterized as transient fluttering, dizziness, lightheadedness, shakiness, nausea. Pt states she has these symptoms intermittently and sometimes are related to her anxiety. Test results are unremarkable except for lithium of 0.27. pt will be discharged home with follow up from her PCP. - Diagnoses Provider Diagnoses: Heart palpitations, Anxiety Discharge - Sign-Out/Discharge Documenting (check all that apply): Patient Departure - Discharge home Patient Received Moderate/Deep Sedation with Procedure: No - Discharge Plan Condition: Stable Disposition: HOME Patient Education Materials: Heart Palpitations (ED), Anxiety (ED) Referrals: Austin Brenner MD [Primary Care Provider] - Additional Instructions: Your blood work did not show any worrisome abnormalities, although your lithium level is somewhat low. I would talk to the provider prescribing this to you to see if a change in the dose might be in order. - Billing Disposition and Condition Condition: STABLE Disposition: Home - Attestation Statements Document Initiated by Nely: Yes Documenting Scribe: Nani Parker Provider For Whom Nely is Documenting (Include Credential): Shabbir Sunshine MD Scribe Attestation: Nani Frias scribed for Shabbir Sunshine MD on 05/25/19 at 1842. Scribe Documentation Reviewed: Yes Provider Attestation: The documentation as recorded by the Nani felipe accurately reflects the service I personally performed and the decisions made by me, Shabbir Sunshine MD Status of Scribe Document: Viewed
== END | disposition home or self-care (01) ==
LOC: ED 17:09
DX: R00.2 Palpitations (principal); F41.9 Anxiety disorder, unspecified; R42 Dizziness and giddiness; R11.0 Nausea; Z86.718 Personal history of other venous thrombosis and embolism; J45.909 Unspecified asthma, uncomplicated; F32.9 Major depressive disorder, single episode, unspecified; Z88.0 Allergy status to penicillin; Z88.2 Allergy status to sulfonamides; Z87.891 Personal history of nicotine dependence
CPT/HCPCS: 36415; 80053; 80178; 84484; 85025; 99282

== ENCOUNTER 2019-07-21 18:15 | Emergency (ER) | payer OTHER ==
--- OUTSIDE RECORDS SUMMARY | 2019-07-21 18:19 | XMS REPORT | Continuity of Care Document ---
:1970 External Reference #:[id number] Author Name Enmanuel Morales M.D. (transmitted by agent of provider Ana Paula Flaherty ) Address [address] [facility] [address] [place] [address] Care Team Providers Name Role Phone Austin Brenner MD - Family Medicine Care Team Information Computer Hardware Engineer [phone] Problems Description No Active Problems Social History Type Date Description Comments Sex Unknown ETOH Use 09/18/2018 Denies alcohol use sober since 2014 except for 2 brief relapses Recreational Drug Use Denies Drug Use Tobacco Use Start: Unknown End: Patient is a former Unknown smoker Tobacco Use Start: Unknown End: Patient is a former quit Aug 2018 Unknown smoker Smoking Status Reviewed: 06/19/19 Patient is a former quit Aug 2018 smoker Exercise Type/Frequency Exercises sporadically Walks dog daily Allergies, Adverse Reactions, Alerts Active Allergies Reaction Severity Comments Date Penicillin unknown 07/21/2015 Sulfa Antibiotics hives 07/21/2015 Medications Active Medications SIG Qnty Indications Ordering Provider Date Ola Carbonate 3 po qd Unknown 300mg Capsules Proair HFA 2 puffs by mouth Unknown 108(90Base) every 4 hours as mcg/Act Aerosol needed Ondansetron HCL one by mouth Unknown 4mg every 8 hours as Tablets needed for nausea Debrox 5 drops in each Unknown 6.5% Solution ear every month Ativan 1 tablet three Unknown 1mg Tablets times daily as needed Clozapine 3 tablets by Unknown 100mg Tablets mouth daily Hydroxyzine HCL 1 tab by mouth at Unknown 50mg bedtime Tablets Immunizations Description No Information Available Vital Signs Date Vital Result Comment 06/19/2019 10:36am Height 66 inches 5'6" Weight 154.25 lb without shoes Heart Rate 88 /min BP Systolic 102 mmHg lying Lue (regular cuff) BP Diastolic 74 mmHg lying Lue (regular cuff) BP Systolic Sitting 110 mmHg BP Diastolic Sitting 80 mmHg BP Systolic Standing 100 mmHg BP Diastolic Standing 80 mmHg BMI (Body Mass Index) 24.9 kg/m2 Ejection Fraction 55-60% Echocardiogram 11/26/2018 1:56pm Height 66 inches 5'6" Weight 171.25 lb Heart Rate 80 /min BP Systolic Sitting 124 mmHg LA, reg BP Diastolic Sitting 86 mmHg LA, reg BMI (Body Mass Index) 27.6 kg/m2 Ejection Fraction 55%-60% 10/19/2018 echo Results Description No Information Available Procedures Date Code Description Status 06/19/2019 08974 EKG Tracing & Interpretation Completed Medical Devices Description No Information Available Encounters Description No Information Available Assessments Date Code Description Provider 06/19/2019 R42 Dizziness and giddiness Enmanuel Morales M.D. 06/19/2019 R00.2 Palpitations Enmanuel Morales M.D. 06/19/2019 E78.00 Pure hypercholesterolemia, unspecified Enmanuel Morales M.D. 06/19/2019 R06.00 Dyspnea, unspecified [place] Morales M.D. 06/19/2019 R94.31 Electrocardiogram abnormal Enmanuel Morales M.D. 06/19/2019 R07.89 Chest discomfort Enmanuel Morales M.D. Plan of Treatment Future Appointment(s):09/16/2019 1:30 pm - Marcy Dempsey N.P. at [facility]08/08/2019 10:15 am - Enmanuel Morales M.D. at [facility]06/19/2019 - Enmanuel Morales M.D.R42 Dizziness and giddinessRecommendations:consider SigFig rolf for phone to record rhythm during symptoms increase salt in diet. consider v8 increase hydration with water, minimize caffeine.R00.2 CgtqnnorofjaR96.00 Pure hypercholesterolemia, unspecifiedNew Labs:Lipid Panel - [facility], Scheduled: 06/19/19R06.00 Dyspnea, unspecifiedNew Orders:Lexiscan Nuclear Myoview, Scheduled: 08/08/19Follow up:ov Marcy 3 m ov [facility] 10 mRecommendations:gently increase exercise to 20-30 min walking 4-5 times/weekR94.31 Electrocardiogram wdsswqgeU54.89 Chest discomfort Functional Status Description No Information Available Mental Status Description No Information Available Referrals Description No Information Available
--- OUTSIDE RECORDS SUMMARY | 2019-07-21 18:19 | XMS REPORT | Continuity of Care Document ---
:1970 External Reference #:[id number] Author Name Rey Zurita MD Address [address] [place] [address] Care Team Providers Name Role Phone Austin Brenner M.D. Primary Care Physician Unavailable Payers Date Identification Numbers Payment Provider Subscriber Policy Number: [id number] [facility] Bita Blancas PayID: [id number] [address] [address] [place] [address] Problems Active Problems Provider Date Impacted cerumen [...] Ordering Provider Date Clozapine Unknown 100mg Tablets [place] Carbonate ER Unknown 300mg Tablets ER Lorazepam Unknown 1mg Tablets Hydroxyzine HCL Take 1 Tablet By Unknown 50mg Mouth Every Day Tablets Vital Signs Date Vital Result Comment 05/30/2019 1:48pm Weight 156.00 lb Weight 70.762 kg Height 66 inches 5'6" Height in cm's 167.6 cm BMI (Body Mass Index) 25.2 kg/m2 05/10/2019 11:11am Weight 156.00 lb Weight 70.762 kg Height 66 inches 5'6" Height in cm's 167.6 cm BMI (Body Mass Index) 25.2 kg/m2 Procedures Date Code Description Status 05/30/2019 33415 Tympanometry Completed 05/30/2019 11534 Comprehensive Audiogram Completed 05/10/2019 31279 Removal Wax Impaction Completed Encounters Type Date Location Provider Dx Diagnosis Office Visit 05/30/2019 [place],After Rey Zurita H90.5 Unspecified 1:45p 10/30/07 sensorineural hearing loss Office Visit 05/10/2019 [place],After Rey Zurita H90.5 Unspecified 11:00a 10/30/07 sensorineural hearing loss H61.23 Impacted cerumen, bilateral Plan of Treatment 05/30/2019 - Rey Zurita MDH90.5 Unspecified sensorineural hearing lossComments:Patient has findings suspicious for sensorineural hearing loss, there is no evidence of retrocochlear pathology. The patient would benefit greatly with hearing aids. This was advised to the patient. the patient is medically cleared for hearing aids
--- OUTSIDE RECORDS SUMMARY | 2019-07-21 18:19 | XMS REPORT | Continuity of Care Document ---
:1970 External Reference #:[id number] Author Name Austin Brenner M.D. Address [address] [place] [address] Care Team Providers Name Role Phone Austin Brenner MD - Family Medicine Care Team Information [employer] [phone] Problems Active Problems Provider Date Hypercoagulability state Austin Brenner M.D. Onset: 05/22/2018 Mixed bipolar affective disorder, mild Austin Brenner M.D. Onset: 2017 Chronic alcoholism in remission Austin Brenner M.D. Onset: 11/27/2018 Malaise Austin Brenner M.D. Onset: 05/21/2019 Social History Type Date Description Comments Sex Unknown Tobacco Use Start: Unknown Denies Tobacco Use ETOH Use Denies alcohol use in recovery, attends AA. bid Recreational Drug Use Denies Drug Use Tobacco Use Start: Unknown End: Patient is a former Unknown smoker Smoking Status Reviewed: 12/25/18 Patient is a former smoker Exercise Type/Frequency Exercises rarely Allergies, Adverse Reactions, Alerts Active Allergies Reaction Severity Comments Date Penicillin 05/01/2018 Sulfa 05/01/2018 Medications Active Medications SIG Qnty Indications Ordering Date Provider Fluticasone use two spray(s) 16gm Austin Sims 06/25/2019 Propionate in each nostril Rosemarie Brenner 50mcg/Act once daily Suspension Proair HFA inhale 2 puffs by 8.5units Austin Sims 08/28/2018 mouth every 4 Rosemarie Brenner 108(90Base) mcg/Act hours Aerosol Ondansetron dissolve 1 tab 15tabs Austin Sims 08/28/2018 4mg under tongue four Rosemarie Brenner Tablets Dispers times a day hours as needed nausea Claude Carbonate 900 mg daily Austin F. Rosemarie Brenner Capsules Ativan Austin F. Tablets Rosemarie Brenner Clozapine 300 mg daily Austin F. 200mg Rosemarie Brenner Tablets Dispers Hydroxyzine HCL one tablet two Unknown 50mg times a day as Tablets needed. Immunizations Description No Information Available Vital Signs Date Vital Result Comment 06/25/2019 6:45pm BP Systolic 118 mmHg BP Diastolic 80 mmHg Heart Rate 80 /min Body Temperature 97.7 F Respiratory Rate 16 /min Weight 154.00 lb 05/21/2019 2:22pm BP Systolic 100 mmHg BP Diastolic 66 mmHg Heart Rate 68 /min Body Temperature 99.3 F Respiratory Rate 16 /min Height 66 inches 5'6" Weight 155.00 lb BMI (Body Mass Index) 25.0 kg/m2 Results Test Date Facility Test Result H/L Range Note CBC Auto Diff 05/24/2019 [facility] [place] White Blood Count 7.5 10^3/uL Normal 3.5- 10.8 Red Blood Count 5.19 10^6/uL High 3.70-4.87 Hemoglobin 14.3 g/dL Normal 12.0-16.0 Hematocrit 42 % Normal 35-47 Mean Corpuscular Volume 82 fL Normal 80-97 Mean Corpuscular Hemoglobin 28 pg Normal 27-31 Mean Corpuscular HGB Conc 34 g/dL Normal 31-36 Red Cell Distribution Width 13 % Normal 10-15 Platelet Count 271 10^3/uL Normal 150-450 Mean Platelet Volume 8.7 fL Normal 7.4-10.4 Abs Neutrophils 5.2 10^3/uL Normal 1.5-7.7 Abs Lymphocytes 2.0 10^3/uL Normal 1.0-4.8 Abs Monocytes 0.3 10^3/uL Normal 0-0.8 Abs Eosinophils 0.0 10^3/uL Normal 0-0.6 Abs Basophils 0.0 10^3/uL Normal 0-0.2 Abs Nucleated RBC 0.0 10^3/uL Granulocyte % 68.8 % Lymphocyte % 26.7 % Monocyte % 4.0 % Eosinophil % 0.0 % Basophil % 0.5 % Nucleated Red Blood Cells % 0.2 Laboratory test finding 05/24/2019 [facility] [place] Troponin I 0.00 ng/mL <0.04 1 Comp Metabolic Panel 05/24/2019 [facility] [place] Sodium 141 mmol/L Normal 135-145 Potassium 4.0 mmol/L Normal 3.5-5.0 Chloride 109 mmol/L Normal 101-111 Co2 Carbon Dioxide 23 mmol/L Normal 22-32 Anion Gap 9 mmol/L Normal 2-11 Glucose 113 mg/dL High 70-100 Blood Urea Nitrogen 9 mg/dL Normal 6-24 Creatinine 0.71 mg/dL Normal 0.51-0.95 BUN/Creatinine Ratio 12.7 Normal 8-20 Calcium 9.7 mg/dL Normal 8.6-10.3 Total Protein 7.0 g/dL Normal 6.4-8.9 Albumin 4.3 g/dL Normal 3.2-5.2 Globulin 2.7 g/dL Normal 2-4 Albumin/Globulin Ratio 1.6 Normal 1-3 Total Bilirubin 0.40 mg/dL Normal 0.2-1.0 Alkaline Phosphatase 61 U/L Normal 34-104 Alt 9 U/L Normal 7-52 Ast 11 U/L Low 13-39 Egfr Non- 87.1 >60 Egfr 105.4 >60 2 Laboratory test finding 05/24/2019 [facility] [place] Claude 0.27 mmol/L Low 0.6-1.2 Comprehensive Metabolic 05/21/2019 [facility]) Sodium 141 mEq/L 134-149 Prof Potassium 4.5 mEq/L 3.6-5.5 Chloride 108 mEq/L 94-112 Carbon Dioxide 24 mEq/L 21-32 Glucose 113 mg/dL High 70-105 3 BUN 6 mg/dL 6-26 Creatinine 0.8 mg/dL 0.6-1.4 BUN/Creat Ratio 7.5 CALC Low 8.0-36.0 Calcium 10.0 mg/dL 8.6-10.2 Total Protein 7.4 g/dL 6.4-8.3 Albumin 4.7 g/dL 3.8-5.5 Globulin 2.7 g/dL 2.0-4.8 A/G Ratio 1.7 CALC 0.6-2.3 Alk. Phosphatase 63 U/L 30-110 Alt (SGPT) 9 U/L 7-35 Ast (Sgot) 10 U/L 5-34 Total Bilirubin 0.3 mg/dL 0.2-1.3 GFR Non- >60 ml/min/1.73m^ >=60 GFR >60 ml/min/1.73m^ >=60 Laboratory test 05/21/2019 [facility]) Free T4 0.86 ng/dL 0.75- 1.54 finding TSH 1.35 mIU/L 0.50-6.00 CBC Electronic (a New) 05/21/2019 [facility] WBC 7.16 4.0-10.0 (607)- - RBC 5.20 [...] 0-1.2 Ua - Non Micro (Fma) 05/21/2019 [facility] Appearance Clear (607)- - Color Yellow Glucose, Urine (Fma/CMC/CTX) Negative Bilirubin Negative Ketones Negative SP Grav 1.020 Blood Negative PH 7.0 Protein Negative Urobil 0.2 Nitrite Negative Leukocytes (a/CMC/Centrex) Negative Laboratory test finding 05/21/2019 [facility] [place] C Reactive Protein 14.58 mg/L High <8.01 4 Claude 0.60 mmol/L Normal 0.6-1.2 5 CBC Auto Diff 04/12/2019 [facility] [place] White Blood Count 7.5 10^3/uL Normal 3.5- 10.8 Red Blood Count 5.19 10^6/uL High 3.70-4.87 Hemoglobin 14.0 g/dL Normal 12.0-16.0 Hematocrit 43 % Normal 35-47 Mean Corpuscular Volume 82 fL Normal 80-97 Mean Corpuscular Hemoglobin 27 pg Normal 27-31 Mean Corpuscular HGB Conc 33 g/dL Normal 31-36 Red Cell Distribution Width 14 % Normal 10-15 Platelet Count 270 10^3/uL Normal 150-450 Mean Platelet Volume 8.9 fL Normal 7.4-10.4 Abs Neutrophils 6.1 10^3/uL Normal 1.5-7.7 Abs Lymphocytes 1.1 10^3/uL Normal 1.0-4.8 Abs Monocytes 0.3 10^3/uL Normal 0-0.8 Abs Eosinophils 0.0 10^3/uL Normal 0-0.6 Abs Basophils 0.0 10^3/uL Normal 0-0.2 Abs Nucleated RBC 0.0 10^3/uL Granulocyte % 81.3 % Lymphocyte % 14.5 % Monocyte % 3.8 % Eosinophil % 0.0 % Basophil % 0.4 % Nucleated Red Blood Cells % 0.1 Comp Metabolic Panel 04/12/2019 [facility] [place] Sodium 141 mmol/L Normal 135-145 Potassium 4.1 mmol/L Normal 3.5-5.0 Chloride 111 mmol/L Normal 101-111 Co2 Carbon Dioxide 26 mmol/L Normal 22-32 Anion Gap 4 mmol/L Normal 2-11 Glucose 101 mg/dL High 70-100 Blood Urea Nitrogen 10 mg/dL Normal 6-24 Creatinine 0.63 mg/dL Normal 0.51-0.95 BUN/Creatinine Ratio 15.9 Normal 8-20 Calcium 9.9 mg/dL Normal 8.6-10.3 Total Protein 7.1 g/dL Normal 6.4-8.9 Albumin 4.2 g/dL Normal 3.2-5.2 Globulin 2.9 g/dL Normal 2-4 Albumin/Globulin Ratio 1.4 Normal 1-3 Total Bilirubin 0.40 mg/dL Normal 0.2-1.0 Alkaline Phosphatase 61 U/L Normal 34-104 Alt 17 U/L Normal 7-52 Ast 15 U/L Normal 13-39 Egfr Non- 100.4 >60 Egfr 121.5 >60 6 Laboratory test finding 04/12/2019 [facility] [place] Claude 0.86 mmol/L Normal 0.6- 1.2 Acetaminophen < 15 g/mL 7 Alcohol < 10 mg/dL Normal <10 Salicylate < 2.50 mg/dL <30 TSH (Thyroid Stim Horm) 1.15 mcIU/mL Normal 0.34-5.60 Laboratory test finding 03/28/2019 [facility] [place] Surgical Pathology SEE RESULT BELOW 8 1 Troponin-I testing on Plasma Separator Tubes (PST) has a known false positive rate of 0.20-0.40%. All positive troponins reflex immediately to secondary confirmatory testing. Using the [employer] 800 Access Immunoassay systems, the 99th percentile upper reference limit was demonstrated to be < 0.03 ng/mL. 2 Because ethnic data is not always readily [...] 15-29 5 Kidney failure <15 (or dialysis) 3 NON-FASTING 4 1 pour off with serum [id number] 5 1 pour off with serum [id number] 6 Because ethnic data is not always readily [...] 15-29 5 Kidney failure <15 (or dialysis) 7 Therapeutic concentration: <50 ug/mL Toxic concentration: >120 ug/mL 8 SEE RESULT BELOW Name: BARRYPHILIPSTEPHANIE : [address]: Maik Arias DO Acct: [id number] Unit: [id number] AGE: 48 Location: ENDO Re03/28/19 SEX: F Status: DEP REF SPEC: [id number] REDDY: 03/28/19-[address] [facility] [address]: Maik Arias DO REQ: [id number] RECD: 03/28/19-153 STATUS: GRACIELA DUMONT DR: Austin Brenner MD _ ORDERED: LEVEL 4 FINAL [...] and Reported on: Sarah Arthur MD 03/29/19 1156 END OF REPORT DEPARTMENT OF PATHOLOGY, [address] [place] [address] Donell Christianson M.D. 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 05/21/2019 F31.61 Bipolar disorder, current episode mixed, Austin Brenner M.D. mild 05/21/2019 R53.81 Other malaise Austin Brenner M.D. Plan of Treatment Future Appointment(s):08/27/2019 11:00 am - Austin Brenner M.D. at Main [id number]/25/2019 - Austin Brenner M.D.R53.81 Other malaiseComments:Recent lab work was unremarkable, patient currently undergoing a cardiac evaluation by Dr. Morales, she will continue routine psychiatric care with Dr. Middleton and Mckenna Borjas. She is not suicidal and she agrees that she will go to the emergency room if she has more difficulty with suicidal ideation, return in 2-3 months, set up mammogram, continue ondansetron for periodic [id number] Other primary thrombophiliaComments:Consider repeat consultation with Dr. Mcwilliams Medication:Fluticasone Propionate 50 mcg/Act - use two spray(s) in each nostril once dailyComments:Medication Management Patient Understands medications she's taking? Yes No Are there Barriers to Adherence? Yes No Has the patient been asked about herbal supplements and therapies, and OTC meds? Yes No Functional Status Description No Information Available Mental Status Description No Information Available Referrals Refer to Reason for Referral Status Appt Date Maik Arias DO COLONOSCOPY Scheduled 03/28/[address] [place] [address] [phone]
[2019-07-21 18:23] VITALS: BP 99/53
--- NOTE | 2019-07-21 18:37 | UC ---
Skin Complaint HPI - HPI Summary HPI Summary: Bitten on the lateral right ankle by a wasp yesterday, with progressive increase in pain over the course of the day, along with swelling and warmth. No fever or chills. Has been using otc cold preparation with an antihistamine without a lot of relief. Uncertain of severity of reaction to penicillin. - History of Current Complaint Chief Complaint: UCLowerExtremity Time Seen by Provider: 07/21/19 18:24 Stated Complaint: BEE STING Hx Obtained From: Patient Hx Last Menstrual Period: hyster Onset/Duration: Gradual Onset, Lasting Hours - 24 Skin Exposure Onset/Duration: Days Ago - 1 Onset Severity: Moderate Current Severity: Moderate Pain Intensity: 8 Location: Discrete - right foot and ankle. Character: Swelling, Pain, Redness Alleviating Factor(s): Cold Compresses, Other - elevation Associated Signs & Symptoms: Positive: Numbness - foot feels tight. Negative: Nausea, Diaphoresis, Cough, Wheezing, Hoarseness, Throat Tightening Related History: Insect Bite/Sting - Allergy/Home Medications Allergies/Adverse Reactions: Allergies Allergy/AdvReac Type Severity Reaction Status Date / Time Penicillins Allergy Hives Verified 07/21/19 18:24 Sulfa (Sulfonamide Allergy Hives Verified 07/21/19 18:24 Antibiotics) Home Medications: Home Medications Lurasidone(*) [Latuda] 40 mg PO DAILY WITH MEAL 07/21/19 [History Confirmed ] Temazepam [Restoril] 15 mg PO DAILY WITH MEAL 07/21/19 [History Confirmed ] PMH/Surg Hx/FS Hx/Imm Hx Respiratory History: Asthma - in remission Psychological History: Bipolar Disorder - Surgical History Surgical History: Yes Surgery Procedure, Year, and Place: varicose vein [id number]. breast reduction x 25 yrs AGO. HYSTERECTOMY 03/2014-[facility]. hernia repair,. appendectomy - Family History Known Family History: Positive: Unknown - adopted - Social History Occupation: Disabled Alcohol Use: Occasionally Alcohol Amount: 6 DRINKS PER WEEK- PATIENT STATES IS IN THE PROCESS OF QUITTING Substance Use Type: None Smoking Status (MU): Former Smoker Amount Used/How Often: OFF AND ON SOCIALLY 20 YEARS When Did the Patient Quit Smoking/Using Tobacco: 10 YEARS AGO - Immunization History Most Recent Influenza Vaccination: 2012 Most Recent Tetanus Shot: Unsure Most Recent Pneumonia Vaccination: Never Review of Systems All Other Systems Reviewed And Are Negative: Yes Constitutional: Positive: Fatigue Skin: Positive: Other - swelling and erythema ENT: Negative: Sore Throat Respiratory: Negative: Shortness Of Breath, Cough Psychological: Positive: Anxious Is Patient Immunocompromised?: No Physical Exam Triage Information Reviewed: Yes Appearance: Well-Appearing, Pain Distress - mild Vital Signs: Initial Vital Signs Temp 99.0 F 07/21/19 18:20 Pulse 51 07/21/19 18:20 Resp 18 07/21/19 18:20 BP 99/53 07/21/19 18:20 Pulse Ox 98 07/21/19 18:20 Eyes: Positive: Conjunctiva Clear ENT: Positive: Pharynx normal Respiratory: Positive: Lungs clear, Normal breath sounds Cardiovascular: Positive: RRR, No Murmur Musculoskeletal: Positive: Strength Intact, ROM Limited @ - right ankle due to swelling Neurological: Positive: Alert, Muscle Tone Normal Psychological Exam: Normal Skin Exam: Other - entry point lateral malleolar area with scant discharge. Skin: Positive: Other - skin of right foot is erythematous although area surrounding the bite is pale. Normal pulse. Diffuse swelling of the foot and ankle, moderate, with pitting. Has erythema extending 13 cm superior to the lateral malleolus. Course/Dx - Course Course Of Treatment: doxycyline for treatment of cellulitis, along with benadryl Given bipolar, I have hesitation in using prednisone due to side effects. Keep foot elevated and ice frequently. - Differential Diagnoses - Skin Complaint Differential Diagnoses: Cellulitis, Local Allergic Reaction - Diagnoses Provider Diagnosis: Cellulitis of right foot Discharge ED - Sign-Out/Discharge Documenting (check all that apply): Patient Departure All imaging exams completed and their final reports reviewed: No Studies - Discharge Plan Condition: Stable Disposition: HOME Prescriptions: DOXYcycline CAP(*) [DOXYcycline 100MG CAP(*)] 100 mg PO BID #14 cap Patient Education Materials: Cellulitis (ED) Referrals: Austin Brenner MD [Primary Care Provider] - Additional Instructions: Keep your foot elevated and apply ice frequently. Use benadryl every 6 hours to decrease the local allergic reaction. Use doxycycline to treat the infection which has resulted from the sting. If you develop fever or extensive swelling of the right leg, please proceed to the emergency room for assessment. - Billing Disposition and Condition Condition: STABLE Disposition: Home
[2019-07-21] MEDS ORDERED: DOXYcycline CAP(*) 100 MG PO ONE ×2 (18:45→18:58)
[2019-07-21] MEDS ORDERED: diPHENhydraMINE PO* 25 MG PO ONE (18:45)
== END 2019-07-21 19:10 | disposition home or self-care (01) ==
LOC: UCEAST 18:15
DX: T63.441A Toxic effect of venom of bees, accidental (unintentional), initial encounter (principal); L03.115 Cellulitis of right lower limb; Y92.9 Unspecified place or not applicable; F31.9 Bipolar disorder, unspecified; Z88.0 Allergy status to penicillin; Z88.2 Allergy status to sulfonamides; Z87.891 Personal history of nicotine dependence
CPT/HCPCS: 99213; A9270-GY; G0463

== ENCOUNTER 2019-07-25 11:03 | Emergency (ER) | payer OTHER ==
[2019-07-25] MEDS ORDERED: Ondansetron INJ* 2 MG/ML VIAL IV ONE (11:55)
[2019-07-25] MEDS ORDERED: Famotidine IV* 10 MG/ML 2 ML (20 mg) IV SLOW PU ONE (11:55)
[2019-07-25] MEDS ORDERED: Thiamine INJ* 100 MG, Folic Acid IV* 1 MG, Multiple Vitamin IV ADULT* 10 ML in NS 0.9% ... IV ONE (11:55)
[2019-07-25 12:27] LABS: ABS Monocytes 0.2 10^3/ul (0-0.8); ABS Neutrophils 6.7 10^3/ul (1.5-7.7); Hematocrit 39 % (35-47); Hemoglobin 12.9 g/dL (12.0-16.0); Lymphocyte % 12.5 %; Mean Corpuscular HGB Conc 33 g/dL (31-36); Mean Corpuscular Hemoglobin 27 pg (27-31); Mean Corpuscular Volume 82 fL (80-97); Mean Platelet Volume 9.1 fL (7.4-10.4); Nucleated Red Blood Cells % 0.1; Platelet Count 280 10^3/uL (150-450); Red Blood Count 4.78 10^6 /uL (3.70-4.87); Red Cell Distribution Width 14 % (10-15); White Blood Count 7.9 10^3/uL (3.5-10.8)
[2019-07-25 12:45] LABS: ALT 11 U/L (7-52); AST 9 U/L (13-39); Albumin 4.2 g/dL (3.2-5.2); Albumin/Globulin Ratio 1.8 (1-3); Alkaline Phosphatase 59 U/L (34-104); Anion Gap 8 mmol/L (2-11); BUN/Creatinine Ratio 12.5 (8-20); Blood Urea Nitrogen 10 mg/dL (6-24); CO2 Carbon Dioxide 24 mmol/L (22-32); Calcium 9.6 mg/dL (8.6-10.3); Chloride 109 mmol/L (101-111); EGFR African American 91.9 (>60); EGFR Non-African American 75.9 (>60); Globulin 2.3 g/dL (2-4); Glucose 112 mg/dL (70-100); Magnesium 1.8 mg/dL (1.9-2.7); Potassium 3.7 mmol/L (3.5-5.0); Sodium 141 mmol/L (135-145); Total Protein 6.5 g/dL (6.4-8.9)
[2019-07-25 12:50] LABS: HCG Pregnancy < 0.60 mIU/mL
[2019-07-25 13:12] LABS: Urine Appearance Clear; Urine Bilirubin Negative (Negative); Urine Blood Negative (Negative); Urine Color Straw; Urine Glucose Negative (Negative); Urine Ketones Negative (Negative); Urine Nitrite Negative (Negative); Urine Protein Negative (Negative); Urine Specific Gravity 1.003 (1.010-1.030); Urine Urobilinogen Negative (Negative)
[2019-07-25] MEDS ORDERED: Metoclopramide IV* 5 MG/ML 2 ML VIAL IV ONE (13:41)
[2019-07-25] MEDS ORDERED: LORazepam INJ* 2 MG/ML 1 ML VIAL IV PUSH ONE (13:42)
[2019-07-25] MEDS ORDERED: Lorazepam PYXIS KEY PRN (13:42)
[2019-07-25] MEDS ORDERED: Lorazepam PYXIS KEY ONE (13:44)
--- NOTE | 2019-07-25 14:09 | ED ---
Nausea/Vomiting/Diarrhea HPI - HPI Summary HPI Summary: This patient is a 49-year-old female with a history of alcohol abuse presenting to the ED with acute episodes of nausea and vomiting starting approximately 3 PM yesterday. Patient states she has been on a yanez for the past 2 weeks and has been drinking daily. She states she is not in withdrawal and has been in withdrawal before and this feels different. She is endorsing nausea and vomiting and now abdominal pain due to profuse vomiting. Denies any hematemesis. She states she was sober for 1.5 years prior to 2 weeks ago. 2 weeks ago she began drinking heavily daily, however states she has been drinking much less than she had previously. She endorses one bottle of wine on Monday and 7 beers yesterday. She denies fevers, sweats, chills, or other discomfort. Denies CP/SOB. - History of Current Complaint Chief Complaint: EDNauseaVomitDiarrh Stated Complaint: possible alcohol poisoning MIXED WITH MEDS Time Seen by Provider: 07/25/19 11:24 Hx Obtained From: Patient Hx Last Menstrual Period: hyster ?: No Onset/Duration: Sudden Onset Timing: Constant Severity Initially: Moderate Severity Currently: Moderate Pain Intensity: 6 Pain Scale Used: 0-10 Numeric Aggravating Factor(s): Nothing Alleviating Factor(s): Nothing Nausea/Vomiting Presence: Nauseated, Vomiting Vomiting Frequency: Every 1-2 hours Nausea/Vomiting Duration: 12-24 hours Diarrhea Presence: No - Risk Factors Influenza Risk Factors: Negative - Allergies/Home Medications Allergies/Adverse Reactions: Allergies Allergy/AdvReac Type Severity Reaction Status Date / Time Penicillins Allergy Hives Verified 07/21/19 18:24 Sulfa (Sulfonamide Allergy Hives Verified 07/21/19 18:24 Antibiotics) PMH/Surg Hx/FS Hx/Imm Hx Previously Healthy: Yes Endocrine/Hematology History: Reports: Hx Thyroid Disease - HYPOTHYROID Denies: Hx Diabetes Cardiovascular History: Reports: Hx Angina - pressure, Hx Deep Vein Thrombosis, Hx Hypercholesterolemia, Hx Peripheral Vascular Disease - HAD VARICOSE VEIN SURGERY DONE BOTH LEGS, Other Cardiovascular Problems/Disorders - DVT LEFT LEG X 2 - LAST 10/2013 Denies: Hx Coronary Artery Disease, Hx Hypertension, Hx Myocardial Infarction Respiratory History: Reports: Hx Asthma - PRN INHALER- HAS NOT NEEDED TO IN A LONG TIME Denies: Hx Chronic Obstructive Pulmonary Disease (COPD) GI History: Reports: Other GI Disorders - pt has had diarrhea for year pcp aware Denies: Hx Crohn's Disease, Hx Diverticulosis, Hx Gall Bladder Disease, Hx Gastroesophageal Reflux Disease, Hx Gastrointestinal Bleed, Hx Hiatal Hernia, Hx Irritable Bowel, Hx Jaundice, Hx Obstructive Bowel, Hx Ileostomy, Hx Pyloric Stenosis, Hx Ulcer History: Denies: Hx Dialysis, Hx Kidney Infection, Hx Kidney Stones, Hx Renal Disease , Other Problems/Disorders Sensory History: Reports: Hx Contacts or Glasses Denies: Hx Hearing Aid Opthamlomology History: Reports: Hx Contacts or Glasses Neurological History: Reports: Other Neuro Impairments/Disorders - tardive dyskineshia, vertigo Psychiatric History: Reports: Hx Anxiety - ON MEDICATION FOR, Hx Depression - ON MEDICATION FOR, Hx Bipolar Disorder - PT Denies: Hx Eating Disorder, Hx of Violent Episodes Against Others - Cancer History Hx Chemotherapy: No Hx Radiation Therapy: No - Surgical History Surgery Procedure, Year, and Place: varicose vein [id number]. breast reduction x 25 yrs AGO. HYSTERECTOMY 03/2014-[facility]. hernia repair,. appendectomy Hx Anesthesia Reactions: No - Immunization History Date of Tetanus Vaccine: unk Date of Influenza Vaccine: none Hx Pertussis Vaccination: No Immunizations Up to Date: Yes Infectious Disease History: No Infectious Disease History: Denies: Hx Clostridium Difficile, Hx Hepatitis, Hx Human Immunodeficiency Virus (HIV), Hx of Known/Suspected MRSA, Hx Shingles, Hx Tuberculosis, Hx Known/ Suspected VRE, Hx Known/Suspected VRSA, History Other Infectious Disease, Traveled Outside the [place] in Last 30 Days - Family History Known Family History: Positive: Unknown - adopted, Hypertension - Social History Occupation: Employed Full-time Lives: Alone Alcohol Use: Daily Alcohol Amount: 6 DRINKS PER WEEK- PATIENT STATES IS IN THE PROCESS OF QUITTING Hx Substance Use: No Substance Use Type: Reports: None Hx Tobacco Use: Yes Smoking Status (MU): Former Smoker Amount Used/How Often: OFF AND ON SOCIALLY 20 YEARS Review of Systems Negative: Fever, Chills, Fatigue, Skin Diaphoresis Negative: Palpitations, Chest Pain Negative: Shortness Of Breath, Cough Positive: Vomiting, Nausea. Negative: Abdominal Pain, Diarrhea Genitourinary: Negative Positive: no symptoms reported, see HPI Negative: Rash Neurological: Negative All Other Systems Reviewed And Are Negative: Yes Physical Exam Triage Information Reviewed: Yes Vital Signs On Initial Exam: Initial Vitals Temp Pulse Resp BP Pulse Ox 100.3 F 55 18 116/64 98 07/25/19 11:06 07/25/19 11:06 07/25/19 11:06 07/25/19 11:06 07/25/19 11:06 Vital Signs Reviewed: Yes Appearance: Positive: Well-Appearing, Well-Nourished Skin: Positive: Warm, Skin Color Reflects Adequate Perfusion Head/Face: Positive: Normal Head/Face Inspection Eyes: Positive: EOMI, KURT, Conjunctiva Clear Diagnostics - Vital Signs Vital Signs Temp Pulse Resp BP Pulse Ox 07/25/19 13:48 18 07/25/19 12:32 48 15 96/63 98 07/25/19 12:03 44 100/61 96 07/25/19 12:00 55 97 07/25/19 11:57 50 104/56 95 07/25/19 11:31 52 95 07/25/19 11:27 51 115/52 96 07/25/19 11:06 100.3 F 55 18 116/64 98 - Laboratory Lab Results: Lab Results 07/25/19 07/25/19 07/25/19 Range/Units 12:06 12:06 12:06 WBC 7.9 (3.5-10.8) 10^3/uL RBC 4.78 (3.70-4.87) 10^6 /uL Hgb 12.9 (12.0-16.0) g/dL Hct 39 (35-47) % MCV 82 (80-97) fL MCH 27 (27-31) pg MCHC 33 (31-36) g/dL RDW 14 (10-15) % Plt Count 280 (150-450) 10^3/uL MPV 9.1 (7.4-10.4) fL Neut % (Auto) 84.4 % Lymph % (Auto) 12.5 % [place] % (Auto) 2.9 % Eos % (Auto) 0.0 % Baso % (Auto) 0.2 % Absolute Neuts (auto) 6.7 (1.5-7.7) 10^3/ul Absolute Lymphs (auto) 1.0 (1.0-4.8) 10^3/ul Absolute Monos (auto) 0.2 (0-0.8) 10^3/ul Absolute Eos (auto) 0.0 (0-0.6) 10^3/ul Absolute Basos (auto) 0.0 (0-0.2) 10^3/ul Absolute Nucleated RBC 0.0 10^3/ul Nucleated RBC % 0.1 Sodium 141 (135-145) mmol/L Potassium 3.7 (3.5-5.0) mmol/L Chloride 109 (101-111) mmol/L Carbon Dioxide 24 (22-32) mmol/L Anion Gap 8 (2-11) mmol/L BUN 10 (6-24) mg/dL Creatinine 0.80 (0.51-0.95) mg/dL Est GFR ( Amer) 91.9 (>60) Est GFR (Non-Af Amer) 75.9 (>60) BUN/Creatinine Ratio 12.5 (8-20) Glucose 112 H (70-100) mg/dL Lactic Acid (0.5-2.0) mmol/L Calcium 9.6 (8.6-10.3) mg/dL Magnesium 1.8 L (1.9-2.7) mg/dL Total Bilirubin 0.50 (0.2-1.0) mg/dL AST 9 L (13-39) U/L ALT 11 (7-52) U/L Alkaline Phosphatase 59 (34-104) U/L Ammonia 30 (16-53) mcmol/L C-Reactive Protein 6.60 (<8.01) mg/L Total Protein 6.5 (6.4-8.9) g/dL Albumin 4.2 (3.2-5.2) g/dL Globulin 2.3 (2-4) g/dL Albumin/Globulin Ratio 1.8 (1-3) Lipase 22 (11.0-82.0) U/L Beta HCG, Quant < 0.60 mIU/mL Urine Color Urine Appearance Urine pH (5-9) Ur Specific [place] (1.010-1.030) Urine Protein (Negative) Urine Ketones (Negative) Urine Blood (Negative) Urine Nitrate (Negative) Urine Bilirubin (Negative) Urine Urobilinogen (Negative) Ur Leukocyte Esterase (Negative) Urine Glucose (Negative) 07/25/19 07/25/19 Range/Units 12:06 13:02 WBC (3.5-10.8) 10^3/uL RBC (3.70-4.87) 10^6 /uL Hgb (12.0-16.0) g/dL Hct (35-47) % MCV (80-97) fL MCH (27-31) pg MCHC (31-36) g/dL RDW (10-15) % Plt Count (150-450) 10^3/uL MPV (7.4-10.4) fL Neut % (Auto) % Lymph % (Auto) % [place] % (Auto) % Eos % (Auto) % Baso % (Auto) % Absolute Neuts (auto) (1.5-7.7) 10^3/ul Absolute Lymphs (auto) (1.0-4.8) 10^3/ul Absolute Monos (auto) (0-0.8) 10^3/ul Absolute Eos (auto) (0-0.6) 10^3/ul Absolute Basos (auto) (0-0.2) 10^3/ul Absolute Nucleated RBC 10^3/ul Nucleated RBC % Sodium (135-145) mmol/L Potassium (3.5-5.0) mmol/L Chloride (101-111) mmol/L Carbon Dioxide (22-32) mmol/L Anion Gap (2-11) mmol/L BUN (6-24) mg/dL Creatinine (0.51-0.95) mg/dL Est GFR ( Amer) (>60) Est GFR (Non-Af Amer) (>60) BUN/Creatinine Ratio (8-20) Glucose (70-100) mg/dL Lactic Acid 1.9 (0.5-2.0) mmol/L Calcium (8.6-10.3) mg/dL Magnesium (1.9-2.7) mg/dL Total Bilirubin (0.2-1.0) mg/dL AST (13-39) U/L ALT (7-52) U/L Alkaline Phosphatase (34-104) U/L Ammonia (16-53) mcmol/L C-Reactive Protein (<8.01) mg/L Total Protein (6.4-8.9) g/dL Albumin (3.2-5.2) g/dL Globulin (2-4) g/dL Albumin/Globulin Ratio (1-3) Lipase (11.0-82.0) U/L Beta HCG, Quant mIU/mL Urine Color Straw Urine Appearance Clear Urine pH 6.0 (5-9) Ur Specific [place] 1.003 L (1.010-1.030) Urine Protein Negative (Negative) Urine Ketones Negative (Negative) Urine Blood Negative (Negative) Urine Nitrate Negative (Negative) Urine Bilirubin Negative (Negative) Urine Urobilinogen Negative (Negative) Ur Leukocyte Esterase Negative (Negative) Urine Glucose Negative (Negative) Result Diagrams: 07/25/19 12:06 07/25/19 12:06 Lab Statement: Any lab studies that have been ordered have been reviewed, and results considered in the medical decision making process. Naus/Vom/Diarrhea Course/Dx - Course Course Of Treatment: During the course of treatment, the patient's evaluated for alcohol related nausea and vomiting. She is denying any withdrawal like symptoms. She denies any fast heart rate, shakiness, nervousness or agitating/ irritability. Patient has had a paternal symptoms in the past, however none currently. She is stating she is drinking far less than she has previously and does not feel she has an aversion of a seizure. She denies any previous seizure -like activity after withdrawing from alcohol. While in the ED, labs are obtained and are unremarkable. She is given Zofran and Ativan without much relief. She continues to say she is nauseous. She is given a banana bag and 1 L fluids. Patient is given Reglan and feeling improved. She states she is okay for discharge at this time. She has no withdrawal like symptoms. She will be given Reglan for at home and will eat small meals at a time until symptoms resolve. - Differential Dx/Diagnosis Differential Diagnoses - Female: Other - Nausea, vomiting, abdominal pain, alcohol withdrawal, alcohol abuse Provider Diagnosis: Alcohol abuse, Nausea and vomiting Condition At Discharge: Stable Discharge ED - Sign-Out/Discharge Documenting (check all that apply): Patient Departure Patient Received Moderate/Deep Sedation with Procedure: No - Discharge Plan Condition: Stable Disposition: HOME Prescriptions: Metoclopramide TAB* [Reglan TAB*] 10 mg PO Q6H PRN #20 tab PRN Reason: Nausea Patient Education Materials: Acute Nausea and Vomiting (ED) Referrals: Austin Brenner MD [Primary Care Provider] - Additional Instructions: Take the magnesium citrate, half bottle. If no bowel movement within 3 hours, take the other half of the bottle. Reglan every 6 hours, take this repeatedly for the first 24 hours then only as needed You may also takes Zofran on the opposite schedule of the Reglan Avoid drinking alcohol E small amounts at a time including crackers, broth, toast, etc. - Billing Disposition and Condition Condition: STABLE Disposition: Home
[2019-07-25] MEDS ORDERED: Magnesium CITRATE* 300 ML BTL PO ONE (15:10)
[2019-07-25 15:27] VITALS: BP 134/73
== END 2019-07-25 15:14 | disposition home or self-care (01) ==
LOC: ED 11:03
DX: F10.10 Alcohol abuse, uncomplicated (principal); R11.2 Nausea with vomiting, unspecified; E03.9 Hypothyroidism, unspecified; E78.00 Pure hypercholesterolemia, unspecified; F41.9 Anxiety disorder, unspecified; F32.9 Major depressive disorder, single episode, unspecified; Z90.710 Acquired absence of both cervix and uterus; Z87.891 Personal history of nicotine dependence; Z88.0 Allergy status to penicillin; Z88.2 Allergy status to sulfonamides
CPT/HCPCS: 36415; 80053; 81003; 82140; 83605; 83690; 83735; 84702; 85025; 86140; 96365; 96366; 96375; 99284; A9270-GY; J2060; J2405; J2765; J3411

== ENCOUNTER 2020-07-25 18:05 | Inpatient (IN) ==
[2020-07-25] MEDS ORDERED: Al Hydrox/Mg Hydrox/Simet LIQ 30 ML UDC ONE (21:26)
[2020-07-25] MEDS: Al Hydrox/Mg Hydrox/Simet LIQ 30 ML UDC PO PRN (22:32)
[2020-07-25] MEDS: Lithium Carbonate ER 450mg TAB PO SCH (23:54)
[2020-07-26] MEDS ORDERED: Influenza VAC *QUAD* 2020-21* 0.5 ML SYRINGE IM ONE (09:00)
[2020-07-26] MEDS: Al Hydrox/Mg Hydrox/Simet LIQ 30 ML UDC PO PRN (17:12)
[2020-07-26] MEDS: Lithium Carbonate ER 450mg TAB PO SCH (22:17)
[2020-07-27 09:06] LABS: HDL Cholesterol 41.6 mg/dL
[2020-07-27] MEDS: Al Hydrox/Mg Hydrox/Simet LIQ 30 ML UDC PO PRN (11:55)
[2020-07-27] MEDS ORDERED: Polyethylene Glycol 3350 17 GM PACKET PO PRN (14:05)
[2020-07-27] MEDS: Lithium Carbonate ER 450mg TAB PO SCH (21:20)
[2020-07-28] MEDS: Lithium Carbonate ER 450mg TAB PO SCH (20:57)
[2020-07-29] MEDS: Lithium Carbonate ER 450mg TAB PO SCH (21:11)
[2020-07-30] MEDS: Lithium Carbonate ER 450mg TAB PO SCH (21:01)
[2020-07-31 09:00] VITALS: BP 93/54
== END 2020-07-31 11:05 | disposition home or self-care (01) | DRG 753 ==
LOC: ED 18:05 → BSU 18:20 → ED 21:19
PROVIDERS: ADMIT Psychiatry & Neurology Psychiatry; ATTEND Psychiatry & Neurology Psychiatry